=== PATIENT | male | born 1950 | race Caucasian/White ===

== ENCOUNTER 2017-10-04 19:45 | Emergency (ER) | payer MEDICARE, SELFPAY | END 2017-10-04 21:23 | disposition home or self-care (01) | PROVIDERS: Emergency Provider Nurse Practitioner; Family Provider Family Medicine; Visit Provider Nurse Practitioner | DX: R51 Headache (principal); R42 Dizziness and giddiness; Z79.899 Other long term (current) drug therapy; E11.9 Type 2 diabetes mellitus without complications; Z79.84 Long term (current) use of oral hypoglycemic drugs; Z79.82 Long term (current) use of aspirin; I10 Essential (primary) hypertension; E78.5 Hyperlipidemia, unspecified | CPT/HCPCS: G0463; 87804; 96372; 99202 ==

== ENCOUNTER 2017-11-26 16:54 | Emergency (ER) | payer MEDICARE, SELFPAY ==
--- NOTE | 2017-11-26 | CT_ITS ---
CT head/brain wo con HISTORY: Severe headache ITS.REASON: MIAGRAINE ORDERING PHYSICIAN: Magnolia Nunez PATIENT AGE: 67 years COMPARISON: None TECHNIQUE: Axial images obtained without contrast. Brain and bone windows reviewed. FINDINGS: No midline shift, mass effect, intracranial hemorrhage, hydrocephalus, or extra-axial fluid collection is evident. The calvarium has an unremarkable appearance. Small amount fluid in right mastoid air cells.. No sinus air-fluid levels.. IMPRESSION: No acute intracranial findings.
[2017-11-26 17:28] VITALS: BP 170/98; PULSE 71; RESP 20; TEMP 36.4; O2SAT 96; BMI 29.8
--- NOTE | 2017-11-26 18:11 | HMH.EDUTC ---
[facility] [place] Clinical Impression: Severe headache Disposition: Still a Patient Condition on Discharge: Good Time of Disposition: 18:30 Medical Decision Making - Medical Records Medical records reviewed: Yes: I reviewed the patient's medical records. MR Comment: 10/04/17 [facility] visit rvwd. Treated w/ benadryl, toradol, reglan and headache improved. Vital Signs: 11/26/17 17:28 11/26/17 18:40 Temperature 97.6 F 98.1 F Temperature Source Temporal Artery Scan Temporal Artery Scan Pulse Rate [Right Brachial] 71 66 Respiratory Rate 20 18 Blood Pressure [Right Arm] 170/98 158/87 Blood Pressure Mean [Right Arm] 122 110 Blood Pressure Source [Right Arm] Automatic Cuff Automatic Cuff Blood Pressure Position [Right Arm] Sitting Sitting 02 Sat by Pulse Oximetry 96 99 Oxygen Delivery Method Room Air Room Air Orders (Tests/Meds): ED MEDICATIONS Discontinued Medications Generic Name Dose Route Start Last Admin Trade Name Freq PRN Reason Stop Dose Admin Diphenhydramine HCl 12.5 mg 11/26/17 18:13 11/26/17 18:45 Benadryl 50mg/1ml Vial IV 11/26/17 18:14 12.5 mg ONCE ONE Administration Ketorolac Tromethamine 15 mg 11/26/17 18:13 11/26/17 18:45 Toradol 30mg/Ml Vial IV 11/26/17 18:14 15 mg ONCE ONE Administration Metoclopramide HCl 10 mg 11/26/17 18:13 11/26/17 18:44 Reglan 10mg/2ml Vial IVP 11/26/17 18:14 10 mg ONCE ONE Administration ORDERS Category Date Time Status CT head/brain wo con Routine Cat Scan 11/26/17 Taken - Physician Consults Physician Consulted: Dr. Kay, ER Time: 18:05 Reason -: Pt condition Comment/Response: Discussed HPI and PMHx that only includes one similiar headache Sep 2017. Agrees w/ transfer to ER for CT head. No bed at this time. UPPER EXTREMITY SURGEON aware. Will notify me once bed available. Aware pt request to be medicated now rather than wait for transfer to ER. VORB for 12.5mg benadryl IV, 10mg reglan IV and 15mg toradol IV as well as CT head w/o contrast while patient waiting for transfer. - Lefty Inquiry Pt receiving controlled substance: No - Reevaluation(s) Time: 18:00 Reevaluation #1: Discussed HPI and exam with patient and . Rvwd potential differential diagnoses. is adamant about CT scan. Aware that will require transfer to ER. pt and agreeable but pt prefers to be medicated soon because his pain is becoming worse. Aware I will discuss this with ER MD. [facility] [place] HPI - General Stated complaint: PHELPS,sick at Stomach Time Seen by Provider: 11/26/17 17:50 Mode of Arrival: Ambulatory Source of Information: Patient Limitations: No Limitations Description of Symptoms (Recalled from Triage Doc. by RN): migraine started lastnight HEENT Symptoms (Recalled from RN notes): No Resp Symptoms (Recalled from RN notes): No Skin Symptoms (Recalled from RN notes): No MS Symptoms (Recalled from RN notes): No Functional Status (Recalled from RN notes): n/a - History of Present Illness Provider Complaint: Here w/ c/o headache. Started day before yesterday but has progressively gotten worse despite ibuprofen. Last dose 600mg around 2-3pm today. PHELPS mild yesterday. Went into work last night, works 3rd with [employer]. Wasn't supposed to get off until 3 this afternoon but around 2pm, started vomiting and headache has gotten worse. Now photosensitive, remains nauseted despite 4mg zofran at 2-3pm, throbbing pain 9/10 behind left eye. Denies a hx of migraines. One other headache similiar Sep 2017. Was seen in [facility]. Improved with benadryl, toradol and reglan. This headache worse. Wonders if due to new glasses 1-2 months ago. Right prescription off. Returned to report it but was told not off to amount to anything . Mother and sister w/ stomach Ca. Due to lack of hx of migraines and this one worse then September, wanting CT to rule out potential causes other then migraine. - Related Data Home Medications Medication Instructions Recorded
--- NOTE | 2017-11-26 18:15 | ED_ITS ---
[facility] [place] Clinical Impression: Severe headache Disposition: Still a Patient Condition on Discharge: Good Time of Disposition: 18:30 Medical Decision Making - Medical Records Medical records reviewed: Yes: I reviewed the patient's medical records. MR Comment: 10/04/[address] [facility] visit rvwd. Treated w/ benadryl, toradol, reglan and headache improved. Vital Signs: 11/26/17 17:28 11/26/17 18:40 Temperature 97.6 F 98.1 F Temperature Source Temporal Artery Scan Temporal Artery Scan Pulse Rate [Right Brachial] 71 66 Respiratory Rate 20 18 Blood Pressure [Right Arm] 170/98 158/87 Blood Pressure Mean [Right Arm] 122 110 Blood Pressure Source [Right Arm] Automatic Cuff Automatic Cuff Blood Pressure Position [Right Arm] Sitting Sitting 02 Sat by Pulse Oximetry 96 99 Oxygen Delivery Method Room Air Room Air Orders (Tests/Meds): ED MEDICATIONS Discontinued Medications Generic Name Dose Route Start Last Admin Trade Name Freq PRN Reason Stop Dose Admin Diphenhydramine HCl 12.5 mg 11/26/17 18:13 11/26/17 18:45 Benadryl 50mg/1ml Vial IV 11/26/17 18:14 12.5 mg ONCE ONE Administration Ketorolac Tromethamine 15 mg 11/26/17 18:13 11/26/17 18:45 Toradol 30mg/Ml Vial IV 11/26/17 18:14 15 mg ONCE ONE Administration Metoclopramide HCl 10 mg 11/26/17 18:13 11/26/17 18:44 Reglan 10mg/2ml Vial IVP 11/26/17 18:14 10 mg ONCE ONE Administration ORDERS Category Date Time Status CT head/brain wo con Routine Cat Scan 11/26/17 Taken - Physician Consults Physician Consulted: Dr. Kay, ER Time: 18:05 Reason -: Pt condition Comment/Response: Discussed HPI and PMHx that only includes one similiar headache Sep 2017. Agrees w/ transfer to ER for CT head. No bed at this time. UPHOLSTERY TRIMMER aware. Will notify me once bed available. Aware pt request to be medicated now rather than wait for transfer to ER. VORB for 12.5mg benadryl IV, 10mg reglan IV and 15mg toradol IV as well as CT head w/o contrast while patient waiting for transfer. - Lefty Inquiry Pt receiving controlled substance: No - Reevaluation(s) Time: 18:00 Reevaluation #1: Discussed HPI and exam with patient and . Rvwd potential differential diagnoses. is adamant about CT scan. Aware that will require transfer to ER. pt and agreeable but pt prefers to be medicated soon because his pain is becoming worse. Aware I will discuss this with ER MD. [facility] [place] - General Stated complaint: PHELPS,sick at Stomach Time Seen by Provider: 11/26/17 17:50 Mode of Arrival: Ambulatory Source of Information: Patient Limitations: No Limitations Description of Symptoms (Recalled from Triage Doc. by RN): migraine started lastnight HEENT Symptoms (Recalled from RN notes): No Resp Symptoms (Recalled from RN notes): No Skin Symptoms (Recalled from RN notes): No MS Symptoms (Recalled from RN notes): No Functional Status (Recalled from RN notes): n/a - History of Present Illness Provider Complaint: Here w/ c/o headache. Started day before yesterday but has progressively gotten worse despite ibuprofen. Last dose 600mg around 2-3pm today. PHELPS mild yesterday. Went into work last night, works 3rd with [employer]. Wasn't supposed to get off until 3 this afternoon but around 2pm , started vomiting and headache has gotten worse. Now p
[2017-11-26 18:40] VITALS: BP 158/87; PULSE 66; RESP 18; TEMP 36.7; O2SAT 99; BMI 29.8
--- NOTE | 2017-11-26 18:40 | PC.NURSE ---
Pt remaining in UTC at this time r/t no available beds in ED.
--- NOTE | 2017-11-26 19:33 | HMH.EDGENADL ---
ED Disposition Clinical Impression: Headache Disposition: Home, Self-Care Condition on Discharge: Good Instructions: DI for Migraine Prescriptions: Prochlorperazine Maleate [Compazine 10mg tablet] 10 mg PO Q6HP PRN #10 tab PRN Reason: Headache Referrals: Arvind Kearns MD [Primary Care Provider] - - Critical Care Critical Care Time: No Attestation: On 11/26/17, the high probability of a clinically significant, sudden or life threatening deterioration of the following system(s) required my full and direct attention, intervention and personal management. The time I documented below is in addition to time spent performing reported procedures but includes the following listed in this critical care notation. Medical Decision Making - Medical Records MR Comment: [address] head read by radiology as no intracranial lesion or injury and no change from prior scan Vital Signs: 11/26/17 17:28 11/26/17 18:40 Temperature 97.6 F 98.1 F Temperature Source Temporal Artery Scan Temporal Artery Scan Pulse Rate [Right Brachial] 71 66 Respiratory Rate 20 18 Blood Pressure [Right Arm] 170/98 158/87 Blood Pressure Mean [Right Arm] 122 110 Blood Pressure Source [Right Arm] Automatic Cuff Automatic Cuff Blood Pressure Position [Right Arm] Sitting Sitting 02 Sat by Pulse Oximetry 96 99 Oxygen Delivery Method Room Air Room Air Orders (Tests/Meds): ED MEDICATIONS Discontinued Medications Generic Name Dose Route Start Last Admin Trade Name Freq PRN Reason Stop Dose Admin Diphenhydramine HCl 12.5 mg 11/26/17 18:13 11/26/17 18:45 Benadryl 50mg/1ml Vial IV 11/26/17 18:14 12.5 mg ONCE ONE Administration Ketorolac Tromethamine 15 mg 11/26/17 18:13 11/26/17 18:45 Toradol 30mg/Ml Vial IV 11/26/17 18:14 15 mg ONCE ONE Administration Metoclopramide HCl 10 mg 11/26/17 18:13 11/26/17 18:44 Reglan 10mg/2ml Vial IVP 11/26/17 18:14 10 mg ONCE ONE Administration ORDERS Category Date Time Status CT head/brain wo con Routine Cat Scan 11/26/17 Taken - Lefty Inquiry Pt receiving controlled substance: No General Adult HPI - General Chief complaint: Headache Stated complaint: PHELPS,sick at Stomach Time Seen by Provider: 11/26/17 17:50 Mode of Arrival: Ambulatory Source of Information: Patient Limitations: No Limitations Description of Symptoms (Recalled from ER Triage Doc. by RN): migraine started lastnight - History of Present Illness HPI narrative: Patient complains of headache started off mild in severity yesterday and got progressively worse and over his whole head more severe today has photophobia with it has history of migraine headaches but this headache is worse than usual and they desire to get a CAT scan of the head to make sure nothing was going on was seen over in fast track and sent over to the emergency room for further evaluation. Denies any fevers or neck stiffness. No falls no trauma. no Neurologic complaints - Related Data Home Medications Medication Instructions Recorded Confirmed Aspirin [Aspir 81] 81 mg PO DAILY 11/26/17 11/26/17 Bifidobacterium Infantis [Align] 4 mg PO DAILY 11/26/17 11/26/17 Hyoscyamine Sulfate 0.125 mg PO Q6HP PRN 11/26/17 11/26/17 Multivitamin [One Daily] 1 each PO DAILY 11/26/17 11/26/17 [place]-3 Fatty Acids [Fish Oil] 300 mg PO DAILY 11/26/17 11/26/17 Omeprazole [Omeprazole 40mg 40 mg PO DAILY 11/26/17 11/26/17 Capsule] Tamsulosin HCl [Flomax 0.4mg 0.4 mg PO DAILY 11/26/17 11/26/17 capsule] Previous Rx's Medication Instructions Recorded Prochlorperazine Maleate 10 mg PO Q6HP PRN #10 tab 11/26/17 [Compazine 10mg tablet] Allergies Allergy/AdvReac Type Severity Reaction Status Date / Time No Known Allergies Allergy Verified 11/26/17 17:28 [facility] History I have reviewed the patient's past medical history: Yes Medical History: Reports:: Diabetes Mellitus Type 2, Gastroesophageal Ref
--- NOTE | 2017-11-26 19:37 | ED_ITS ---
ED Disposition Clinical Impression: Headache Disposition: Home, Self-Care Condition on Discharge: Good Instructions: DI for Migraine Prescriptions: Prochlorperazine Maleate [Compazine 10mg tablet] 10 mg PO Q6HP PRN #10 tab PRN Reason: Headache Referrals: Arvind Kearns MD [Primary Care Provider] - - Critical Care Critical Care Time: No Attestation: On 11/26/17, the high probability of a clinically significant, sudden or life threatening deterioration of the following system(s) required my full and direct attention, intervention and personal management. The time I documented below is in addition to time spent performing reported procedures but includes the following listed in this critical care notation. Medical Decision Making - Medical Records MR Comment: [address] head read by radiology as no intracranial lesion or injury and no change from prior scan Vital Signs: 11/26/17 17:28 11/26/17 18:40 Temperature 97.6 F 98.1 F Temperature Source Temporal Artery Scan Temporal Artery Scan Pulse Rate [Right Brachial] 71 66 Respiratory Rate 20 18 Blood Pressure [Right Arm] 170/98 158/87 Blood Pressure Mean [Right Arm] 122 110 Blood Pressure Source [Right Arm] Automatic Cuff Automatic Cuff Blood Pressure Position [Right Arm] Sitting Sitting 02 Sat by Pulse Oximetry 96 99 Oxygen Delivery Method Room Air Room Air Orders (Tests/Meds): ED MEDICATIONS Discontinued Medications Generic Name Dose Route Start Last Admin Trade Name Freq PRN Reason Stop Dose Admin Diphenhydramine HCl 12.5 mg 11/26/17 18:13 11/26/17 18:45 Benadryl 50mg/1ml Vial IV 11/26/17 18:14 12.5 mg ONCE ONE Administration Ketorolac Tromethamine 15 mg 11/26/17 18:13 11/26/17 18:45 Toradol 30mg/Ml Vial IV 11/26/17 18:14 15 mg ONCE ONE Administration Metoclopramide HCl 10 mg 11/26/17 18:13 11/26/17 18:44 Reglan 10mg/2ml Vial IVP 11/26/17 18:14 10 mg ONCE ONE Administration ORDERS Category Date Time Status CT head/brain wo con Routine Cat Scan 11/26/17 Taken - Lefty Inquiry Pt receiving controlled substance: No General Adult HPI - General Chief complaint: Headache Stated complaint: PHELPS,sick at Stomach Time Seen by Provider: 11/26/17 17:50 Mode of Arrival: Ambulatory Source of Information: Patient Limitations: No Limitations Description of Symptoms (Recalled from ER Triage Doc. by RN): migraine started lastnight - History of Present Illness HPI narrative: Patient complains of headache started off mild in severity yesterday and got progressively worse and over his whole head more severe today has photophobia with it has history of migraine headaches but this headache is worse than usual and they desire to get a CAT scan of the head to make sure nothing was going on was seen over in fast track and sent over to the emergency room for further evaluation. Denies any fevers or neck stiffness. No falls no trauma. no Neurologic complaints - Related Data Home Medications Medication Instructions Recorded Confirmed Aspirin [Aspir 81] 81 mg PO DAILY 11/26/17 11/26/17 Bifidobacterium Infantis [Align] 4 mg PO DAILY 11/26/17 11/26/17 Hyoscyamine Sulfate 0.125 mg PO Q6HP PRN 11/26/17 11/26/17 Multivitamin
[2017-11-26 19:49] VITALS: BP 168/96; PULSE 82; RESP 16; TEMP 36.8; O2SAT 98
== END 2017-11-26 19:51 | disposition home or self-care (01) ==
LOC: UTC 18:39 → ER 19:23
PROVIDERS: Emergency Provider Nurse Practitioner Family; Family Provider Family Medicine; PCP Family Medicine
DX: R51 Headache (principal); R10.9 Unspecified abdominal pain; Z79.82 Long term (current) use of aspirin; K21.9 Gastro-esophageal reflux disease without esophagitis; E11.9 Type 2 diabetes mellitus without complications; I10 Essential (primary) hypertension; Z90.49 Acquired absence of other specified parts of digestive tract
CPT/HCPCS: 70450; 96374; 96375; 99283

== ENCOUNTER → 2019-02-17 08:58 | Outpatient (CLI) | payer MEDICARE, SELFPAY ==
--- NOTE | 2019-02-17 09:08 | US_ITS ---
US chest CLINICAL INDICATION: ITS.REASON: AMI AXILLARY NODULES ORDERING PHYSICIAN: Juli Randall APRN PATIENT AGE: 68 years Comparison: None FINDINGS: Ultrasound performed of both axilla. On the right nonspecific axillary lymph nodes are present measuring up to 2.7 cm with central fatty wilda. On the left there are small nodes present measuring up to 2.9 cm with central fatty wilda. No cyst or other significant anomalies evident IMPRESSION: Small bilateral axillary are present
== END ==
PROVIDERS: PCP Family Medicine; Visit Provider Nurse Practitioner
DX: R22.2 Localized swelling, mass and lump, trunk (principal)
CPT/HCPCS: 76604

== ENCOUNTER 2019-03-07 08:54 | Day surgery (SDC) | payer MEDICARE, SELFPAY ==
[2019-03-04 14:01] VITALS: BMI 29.4
[2019-03-07] VITALS (8 sets, daily range): BP systolic 85–145; BP diastolic 57–94; PULSE 79–88; RESP 16–20; TEMP 36.4–36.7; O2SAT 94–99
[2019-03-07 09:32] LABS: POC Glucose,Bedside 131 (70-110)
--- NOTE | 2019-03-07 10:17 | P.PCN_ITS ---
[facility] Procedure Note Procedure Note:: Colonoscopy Procedure Report: Colonoscopy with cold snare polypectomy Endoscopist: Aristides Ochoa II, MD Referring physician: Taniya COLEMAN Date of Procedure: March 07, 2019 Equipment: Olympus 180 variable stiffness pediatric colonoscope Sedation: MAC sedation Indication: Mr. Holt is a 68-year-old gentleman who is here for diagnostic colonoscopy. He has had some left lower quadrant abdominal pain and discomfort and intermittent diarrhea. The patient did have a colonoscopy in April 2016 and had some acute ileitis but no microscopic colitis. He also had left-sided diverticulosis. The patient reports no rectal bleeding, weight loss or family history of colon cancer. His mother and sister had stomach/gastric cancer. Procedure: Prior to the procedure, a history and physical exam was performed, and patient's medications and allergies were reviewed. The risks, benefits and alternatives of the sedation and procedure were discussed with the patient. All questions were answered and informed consent was obtained. The patient was brought to the procedure room. Patient identification and proposed procedure were verified by the physician and the nurse. The patient was placed in a left lateral decubitus position and the scope was passed under direct vision. Throughout the proc edure, the patient's blood pressure, pulse, and oxygen saturations were monitored continuously. The colonoscopy was accomplished without difficulty. The patient tolerated the procedure well. Findings: On digital rectal examination there was normal rectal tone. There were no external hemorrhoids. The prostate was 2+, smooth, soft, symmetric without nodules. The colonoscope was introduced through the anal canal to the rectum and advanced to the cecum. The ileocecal valve and appendiceal orifice were identified. The scope was advanced a short distance into the ileum which appeared grossly normal. The scope was then withdrawn into the colon. There were 2 polyps in the cecum that were 3 and 6 mm. There were 2 polyps in the transverse colon that were 4 and 5 mm. All 4 of these polyps were removed via cold snare polypectomy. There were extensive scattered diverticuli throughout the colon but more predominantly in the descending and sigmoid colon (LEFT colon). The rectum itself was normal. Upon retroflexion within the rectum there were grade 1 internal hemorrhoids. The preparation was excellent throughout with [place] Preparation Score of 9. The cecal time was 13 minutes. Impression: 1. Colonic polyps x4 2. Pandiverticulosis 3. Grade 1 internal hemorrhoids Plan: I will follow up the polyp pathology and recommend repeat colonoscopy again in 3 years based upon the polyp histology. I would encourage dietary measures, bulk fiber supplementation, probiotic and IBgard on a long-term daily maintenance basis. I would also consider Viberzi. I will discuss the findings with patient and family.
== END 2019-03-07 11:10 | disposition home or self-care (01) ==
LOC: OUTP 08:55
PROVIDERS: PCP Family Medicine; Visit Provider Internal Medicine Gastroenterology
PROC: 0DJD8ZZ Inspection of Lower Intestinal Tract, Via Natural or Artificial Opening Endoscopic (ICD-10-PCS; CPT 45378; principal; 2019-03-07 10:00)
DX: K63.5 Polyp of colon (principal); K57.30 Diverticulosis of large intestine without perforation or abscess without bleeding; K64.0 First degree hemorrhoids; Z87.19 Personal history of other diseases of the digestive system; Z85.028 Personal history of other malignant neoplasm of stomach; E11.9 Type 2 diabetes mellitus without complications
CPT/HCPCS: 45385; 82962; 88305

== ENCOUNTER → 2019-04-22 08:17 | Outpatient (CLI) | payer MEDICARE, SELFPAY ==
--- NOTE | 2019-04-22 08:19 | CT_ITS ---
CT chest wo con HISTORY: ITS.REASON: ENLARGED LYMPH NODE IN ARMPIT, NIGHT SWEATS ORDERING PHYSICIAN: Arvind Kearns MD PATIENT AGE: 68 years COMPARISON: None Technique: Axial images were obtained. Sagittal, and coronal reformatted images are also generated and reviewed. All CT scans at the facility use one or more dose reduction, viz: automated exposure control, ma/kV adjustment per patient size (including targeted exams where dose is matched to indication, i.e. head), or iterative reconstruction technique. FINDINGS: No mediastinal or hilar adenopathy. There are a few small hilar lymph nodes nonspecific. Coronary artery calcifications are present. There are scattered small axillary lymph nodes however, no enlarged lymph nodes are evident. No effusions or infiltrates. No suspicious pulmonary nodules. There is a 3 mm nodule in the left upper lobe anteriorly is hyperdense and a calcified granuloma in the left lower lobe. Upper abdominal images show a 10 mm isodense nodule in the left hepatic lobe may represent a cyst. Nonobstructing 2 mm stone in the upper pole the left kidney. There are mild degenerative changes in the thoracic spine. IMPRESSION: 1. No acute finding. 2. There are only small lymph nodes noted in the axilla and in the mediastinum and wilda. No dominant adenopathy is evident. 3. Coronary artery calcification
== END ==
PROVIDERS: PCP Family Medicine; Visit Provider Family Medicine
DX: R59.0 Localized enlarged lymph nodes (principal); R61 Generalized hyperhidrosis
CPT/HCPCS: 71250

== ENCOUNTER 2019-07-03 08:30 | Outpatient (RCR) | payer MEDICARE, SELFPAY ==
--- NOTE | 2019-06-25 11:10 | HMH.PTOPEV ---
PT Outpatient Evaluation Rehab PT Outpatient Evaluation Start: 06/25/19 10:35 Freq: Status: Active Protocol: Document 06/25/19 10:44 GI (Rec: 06/25/19 11:10 GI [id number]) Electronically Signed By Scott Gbison, PT 06/25/19 10:44 Outpatient Therapy Subjective History Subjective History 68 year old male pt. is referred to PT for L sided neck pn. Pt. reports pn. has been going on for about 2 months now. Pt. states he has a history of bone spurs on the right side of his neck as well as arthritis. Pt. reports that he has a numbness and sharp pn. on the L side of his neck but it is isolated to this spot. States that Alieve and certain positions make it feel better. Extending, rotating, and sleeping on his L side bother him the most. Chief Complaint Pain,Paresthesia Symptom Type Sharp,Numbness,Tingling Symptoms Relieved By Rest/Positioning,OTC Meds Symptoms Aggravated By Physical Activity,Twisting, Lifting Prior Functional Limitations None Current Functional Limitations Reaching,Lifting,Sleeping, Recreation Activity Symptom Description Constant but Variable Level of pain today (0-10) 4 Pain scale - at its best (0-10) 3 Pain scale - at its worst (0-10) 6 Cervical Eval Flexibility Deficits Upper Trapezius Muscle Length (R) Mild Tightness,(L) Mild Tightness Sternocleidomastoid Muscle Length (R) Mild Tightness,(L) Mild Tightness AROM Cervical Spine Extension Active Range of 25 Motion (degrees) Cervical Spine Flexion Active Range of 60 Motion (degrees) Cervical Spine Right Lateral Flexion 30 Active Range of Motion (degrees) Cervical Spine Left Lateral Flexion 30 Active Range of Motion (degrees) Cervical Spine Right Rotation Active 40 Range of Motion (degrees) Cervical Spine Left Rotation Active 40 Range of Motion (degrees) MMT Bilateral Deltoid (C5) 5 Normal Biceps Brachii Strength Grade 5 Normal Wrist Extension Strength Grade 5 Normal Triceps Brachii Strength Grade 5 Normal Wrist Flexion Strength Grade 5 Normal Extensor Pollicis Longus Strength Grade 5 Normal Finger Abduction Strength Grade 5 Normal DTR Rt Biceps 1+
== END 2019-07-03 08:35 | disposition home or self-care (01) ==
LOC: PT 08:30
PROVIDERS: PCP Family Medicine; Visit Provider Family Medicine
DX: M54.2 Cervicalgia (principal)
CPT/HCPCS: 97012; 97014; 97110; 97163; G0283

== ENCOUNTER → 2019-10-27 10:23 | Outpatient (CLI) | payer MEDICARE, SELFPAY ==
--- NOTE | 2019-10-27 10:40 | CT_ITS ---
PROCEDURE: CT CHEST W CON CLINCAL INDICATION: AXILLARY LYMPHADENOPATHY Bilateral axillary adenopathy COMPARISON: CHESTWO CT chest wo con from 04/22/2019 TECHNIQUE: IV Contrast: 75ml Optiray 350 Axial images obtained with sagittal and coronal reformats. All CT scans at the facility use one or more dose reduction, viz: automated exposure control, ma/kV adjustment per patient size (including targeted exams where dose is matched to indication, i.e. head), or iterative reconstruction technique. FINDINGS: No mediastinal or hilar mass. There are few small mediastinal and hilar lymph nodes which do not appear significantly changed. Coronary artery calcifications are present. Normal heart size without evidence of pericardial effusion. There are scattered small bilateral axillary lymph nodes. No enlarged nodes are evident.. No effusions or infiltrates. There is a calcified granuloma in the left upper lobe. Calcified granuloma is also present in the left lower lobe. No suspicious pulmonary nodules. Upper abdominal images show mild fatty liver. Hypodense nodules present in the left hepatic lobe at 8 mm and in the anterior segment of the right hepatic lobe at 5 mm. These are nonspecific too small to categorize. 3 mm nonobstructing stone is present in the upper pole of the left kidney. IMPRESSION: Overall no change with no acute finding. No change small axillary mediastinal nodes. Possible small cysts in the liver Dictated by: Venkat Eduardo MD 10/28/2019 11:10 Electronically signed by Venkat Eduardo MD in [place] 10/28/2019 11:10
[2019-10-27 10:45] LABS: Blood Urea Nitrogen 15 mg/dL (7-18); Creatinine,Serum 0.77 mg/dL (0.70-1.30); Estimated Glomerular Filt Rate 101 ml/min (>60); GFR (African American) 122 ML/MIN (>60)
== END ==
PROVIDERS: PCP Family Medicine; Visit Provider Family Medicine
DX: R59.0 Localized enlarged lymph nodes (principal)
CPT/HCPCS: 36415; 71260; 82565; 84520; Q9967

== ENCOUNTER → 2021-05-27 12:58 | Outpatient (CLI) | payer MEDICARE, SELFPAY ==
--- NOTE | 2021-05-27 13:02 | XR_ITS ---
PROCEDURE: XR CERVICAL SPINE 5V CLINICAL INDICATION: CERVICAL SPONYLOSIS COMPARISON: No exams were available for comparison FINDINGS: Normal alignment. No fracture or dislocation evident. Multilevel degenerative disc disease from C3 to C7. Foraminal narrowing is present on the right at C3-C4 C4-C5 and C5-C6 and on the left at C3-C4 C4-C5 and C5-C6. no lytic or blastic change. No evidence of cervical rib. Facet hypertrophic changes are present from C3 to C7. Other findings:None. IMPRESSION: Cervical spondylosis with degenerative disc disease and foraminal narrowing Dictated by: Venkat Eduardo MD 05/27/2021 14:34 Venkat Eduardo MD in [place] 05/27/2021 14:34
== END ==
PROVIDERS: PCP Family Medicine; Visit Provider Family Medicine
DX: M47.812 Spondylosis without myelopathy or radiculopathy, cervical region (principal)
CPT/HCPCS: 72050

== ENCOUNTER → 2021-07-20 06:48 | Outpatient (CLI) | payer MEDICARE, SELFPAY ==
--- NOTE | 2021-07-20 | CA_ITS ---
APPROVED REPORT Exam: Exercise Treadmill Technologist: Antonella Armendariz Ht: 5 ft 6 in Wt: 196 lbs BSA: 1.98 m2 HR: 85 bpm BP: 137/83 mmHg Indications: Chest pain Stress Test Details Test: Jean Marie HR Resting HR: 93 bpm Max Heart Rate (APMHR): 152.697205 bpm Max HR Achieved: 141 bpm Target HR (85% APMHR): 129.131933 bpm % of APMHR: 92.76 Recovery HR: 105 bpm BP Resting BP: 137.0/83.0 mmHg Max BP: 192.0/76.0 mmHg Recovery BP: 135.0/83.0 mmHg ECG Resting ECG: Normal sinus rhythm Clinical Exercise duration: 07:01 min Highest Stage Achieved: Exercise capacity: 10.1 METs Stress ECG Conclusion Stopped at 7:00 on Jean Marie Protocol. Test stopped due to shortness of air, fatigue. Symptoms: No chest pain, slight dizziness. Arrhythmias/Ectopy: None ST-T Changes: Within normal ST response to exercise. Conclusion: Normal GXT. Myoview images reported separately. Electronically signed by : Min Foote MD 07/21/2021 09:49:14
--- NOTE | 2021-07-20 06:55 | NM_ITS ---
APPROVED REPORT Exam: Nuclear Stress Test Indication: HTN, D.M., FM HX, C.P., SOB, FATIGUE, DIZZINESS, ATYPICAL ANGINA Patient Location: Outpatient Stress Tech: April Mathew [place] Tech:Nita Umana, ARRT RT (R)(N)(M) Ht: 5 ft 6 in Wt: 183 lbs HR: 85 bpm BP: 137/83 mmHg BSA: 1.93 m2 BMI: 29.5 History: HTN, D.M., FM HX, C.P., SOB, FATIGUE, DIZZINESS, ATYPICAL ANGINA Procedure: Patient exercised on Jean Marie protocol 7:00 minutes and sec, resting heart rate 85 bpm, resting blood pressure 137/83 mmHg, with exercise maximum heart rate achived was 141 bpm which is 93 % of the maximum predicted heart rate and blood pressure was 192/76 mmHg. Test was stopped due to DIZZINESS. Patient denied any complaint of chest pain. Patient has good exercise capacity, achieved 10.1 METs of workload on treadmill, the blood pressure response to exercise was Adequate. Electrocardiogram Resting electrocardiogram showed sinus rhythm, with exercise there is less than 1.[address] segment depression noted from the baseline EKG. The EKG portion of the exercise Myoview is negative for ischemia. Cardiac Stress and Resting SPECT Images: Cardiac Stress and Resting SPECT images were obtained using technetium 99m Myoview 32.7 mCi stress and 10.79 mCi at rest. Gated SPECT for analysis of segmental wall motion and calculation of the ejection fraction also done. Prone images were also obtained. Cardiac stress and resting SPECT images show uniform myocardial activity without segmental perfusion abnormality, computer derived ejection fraction is 50% with no regional wall motion abnormality, right ventricle is normal size and contractility. Conclusion: 1. The EKG portion of the exercise Myoview is negative for ischemia, patient has good exercise capacity achieved 10.1 METs of workload on treadmill, the blood pressure response to exercise was adequate, there was no exercise-induced chest discomfort. 2. No scintigraphic evidence of reversible ischemia seen, computer derived ejection fraction 50% with no regional wall motion abnormality, right ventricle is normal size and contractility. 3. Normal exercise Myoview study. Electronically signed by : Min Foote MD 07/21/2021 09:53:06
--- NOTE | 2021-07-20 08:18 | CA_ITS ---
APPROVED REPORT EXAM: Comprehensive 2D, Doppler, and color-flow Echocardiogram Gunite Mixer: Aarti Khan CRT Ht: 5 ft 6 in Wt: 185lbs BSA: 1.93 BP: 158/96 mmHg Indications: Chest Pain, Shortness of Breath, Dizziness and Vertigo, CAD 2D Dimensions LVOT 1.97 cm (M/F) 1.5-2.5 LA Volume 19.80 mL LA Volume Index 10.30 mL/m2 (M/F) 16-34 M-Mode Dimensions RVDd 2.39 cm (0.9-2.6) LA Diam 3.50 cm (1.9-4.0) LVDd 5.42 cm (3.5-5.7) Ao Diam 4.28 cm (2.0-3.7) LVDs 3.39 cm (3.5-5.7) IVSd 0.93 cm (0.6-1.1) PWd 0.82 cm (0.6-1.1) EF (Teich) 66.90% FS 37.50% EDV (Teich) 142.50 mL TAPSE 2.60 (<1.7) ESV (Teich) 47.10 mL LV Diastology E Decel Time 237.00 (160-240 msec) E/A Ratio 0.75 MED E' 4.10 (< 7 cm/sec) MED A' 7.00 cm/s E'/MED E' Ratio 15.88 (>14) LAT E' 10.50 (<10 cm/sec) LAT A' 8.00 cm/s E/LAT E' Ratio 6.20 (>14) Aortic Valve AO Peak GR. 5.30 mmHg Mitral Valve MV E Max Carlos. 65.00 (40-130 cm/s) MV A Velocity 86.00 (40-130 cm/s) E/A Ratio 0.75 MV Decel. Time 237.00 (160-240 ms) MV PHT 69.00 ms Pulmonary Valve PV Peak Velocity 119.00 (50-150 cm/s) Tricuspid Valve TR P. Velocity 174.00 cm/s RAP Estimate 10.00 mmHg RVSP 22.00 mmHg Left Ventricle Left atrium is qualitatively mildly enlarged, left ventricle is normal size, mild qualitative concentric left ventricular hypertrophy, visually estimated ejection fraction 55% with no regional wall motion abnormality. Grade 1 diastolic dysfunction seen without tissue Doppler evidence of raise left atrial pressure. Right Ventricle Right atrium and right ventricle are normal size and contractility. Aortic Valve Aortic valve is grossly normal, there is no aortic stenosis or aortic insufficiency. Mitral Valve Mitral valve grossly normal, there is trace mitral regurgitation. Tricuspid Valve Tricuspid grossly normal, there is trace tricuspid regurgitation, tricuspid regurgitation jet velocity is inadequate for calculation of the right ventricular systolic pressure. Pulmonic Valve Pulmonic valve is poorly visualized. Great Vessels Aortic root is normal size. Inferior vena cava is normal size with normal inspiratory collapse. Pericardium No significant pericardial effusion noted. Conclusion 1. Qualitatively mildly enlarged left atrium, normal left ventricular size, mild qualitative concentric left ventricular hypertrophy, visually estimated ejection fraction 55% with no regional wall motion abnormality, grade 1 diastolic dysfunction seen without tissue Doppler evidence of raise left atrial pressure. 2. Trace mitral and tricuspid regurgitation. 3. No significant pericardial effusion noted. 4. Inferior vena cava is normal size with normal inspiratory collapse. Electronically signed by : Min Foote MD 07/21/2021 11:24:38
== END ==
PROVIDERS: PCP Family Medicine; Visit Provider Internal Medicine Cardiovascular Disease
DX: I20.8 Other forms of angina pectoris (principal); R06.00 Dyspnea, unspecified; R42 Dizziness and giddiness
CPT/HCPCS: 78452; 93017; 93306; A9502

== ENCOUNTER → 2021-07-22 08:07 | Outpatient (CLI) | payer MEDICARE, SELFPAY ==
[2021-07-22 08:20] LABS: Basophils % 0.6 % (0.1-2.0); Eosinophils # 0.3 K/mm3 (0.0-0.4); Eosinophils % 3.9 % (0.1-12.0); Hematocrit 43.5 % (42.0-52.0); Hemoglobin 14.7 g/dL (14.1-18.0); Lymphocytes # 2.2 K/mm3 (0.7-4.5); Lymphocytes % 30.1 % (10-50); Mean Corpuscular HGB Conc 33.8 g/dL (31.8-35.4); Mean Corpuscular Hemoglobin 32.1 pg (27.0-31.2); Mean Platelet Volume 9.8 fl (7.4-10.4); Monocytes # 0.5 K/mm3 (0.1-1.0); Monocytes % 6.3 % (1.7-9.3); Neutrophils # 4.2 K/mm3 (1.8-7.8); Platelet Count 216 K/mm3 (142-424); Red Blood Count 4.58 M/mm3 (4.60-6.20); Red Cell Distribution Width 13.9 % (11.5-17.5); White Blood Count 7.2 K/mm3 (4.8-10.8)
[2021-07-22 08:28] LABS: Chloride 105 mmol/L (98-107)
[2021-07-22 08:29] LABS: Sodium 138 mmol/L (136-145)
[2021-07-22 08:31] LABS: Bilirubin,Unconjugated 0.4 mg/dL (0.0-1.1); Blood Urea Nitrogen 17 mg/dl (9-20); Estimated Glomerular Filt Rate 96 ml/min (>60); GFR (African American) 116 ML/MIN (>60)
[2021-07-22 08:32] LABS: Alanine Aminotransferase 21 U/L (12-78); Aspartate Amino Transferase 25 U/L (17-59); Calcium 8.9 mg/dl (8.4-10.2); Carbon Dioxide 25 mmol/L (22.0-30.0); Glucose 130 mg/dl (74-100); HDL Cholesterol 50 mg/dl (40-60)
[2021-07-22 08:43] LABS: Direct LDL Cholesterol 41.54 mg/dL (100-129)
[2021-07-22 09:03] LABS: Free T4 (Free Thyroxine) 1.14 ng/dl (0.78-2.19)
[2021-07-22 09:31] LABS: Albumin Level 4.1 g/dl (3.5-5.0); Alkaline Phosphatase 64 U/L (38-126); Bilirubin,Direct 0.1 mg/dl (0.0-0.4); Bilirubin,Indirect 0.4 mg/dL (0.0-0.9); Bilirubin,Total 0.5 mg/dl (0.2-1.3); Chol/HDL Ratio 2.1 (1-3.5); Cholesterol 104 mg/dl (140-200); Total Protein,Serum 6.6 g/dl (6.3-8.2); Triglycerides 49 mg/dl (30-150); VLDL Cholesterol 10 mg/dL (0-40)
== END ==
PROVIDERS: Visit Provider Internal Medicine Cardiovascular Disease
DX: R06.00 Dyspnea, unspecified; R42 Dizziness and giddiness; I20.8 Other forms of angina pectoris
CPT/HCPCS: 36415; 80048; 80061; 80076; 84439; 84443; 85025

== ENCOUNTER → 2021-09-01 15:42 | Outpatient (CLI) | payer MEDICARE, SELFPAY | PROVIDERS: PCP Family Medicine; Visit Provider Internal Medicine Cardiovascular Disease | DX: G47.33 Obstructive sleep apnea (adult) (pediatric) (principal); R40.0 Somnolence; R06.83 Snoring | CPT/HCPCS: G0399 ==

== ENCOUNTER 2021-10-01 14:48 | Emergency (ER) | payer MEDICARE, SELFPAY ==
[2021-10-01 16:22] VITALS: BP 150/88; PULSE 75; RESP 20; TEMP 36.6; O2SAT 96; BMI 29.8
--- NOTE | 2021-10-01 16:40 | HMH.EDUTC ---
[facility] [place] Clinical Impression: Sinusitis Qualifiers: Sinusitis location: unspecified location Chronicity: acute Recurrence: non-recurrent Qualified Code(s): J01.90 - Acute sinusitis, unspecified Disposition: Home, Self-Care Condition on Discharge: Good Instructions: DI for Sinusitis Additional Instructions: Drink plenty of fluids. Take tylenol or ibuprofen for pain or fever. Take the medications as directed. Follow up with your regular doctor. GO TO THE ER FOR ANY WORSENING SYMPTOMS Prescriptions: Promethazine/Dextromethorphan [Promethazine-Dm Syrup] 5 ml PO Q6HP PRN #240 ml PRN Reason: Cough Transmission Status: Received by [id number] methylPREDNISolone [Medrol] 4 mg PO DIRECTED 6 Days #21 packet Transmission Status: Received by [id number] Azithromycin [Z-Antony 250mg Tab*] 250 mg PO UD DOSE PK #6 tab Transmission Status: Received by [id number] Referrals: Arvind Kearns MD [Primary Care Provider] - Time of Disposition: 17:02 Medical Decision Making - Medical Records Medical records reviewed: No: I reviewed the patient's medical records. - Lefty Inquiry Pt receiving controlled substance: No Vital Signs: 10/01/21 16:22 10/01/21 17:14 Temperature 97.8 F 97.8 F Temperature Source Oral Pulse Rate 75 Pulse Rate [Left] 75 Respiratory Rate 20 20 Blood Pressure 150/88 H Blood Pressure [Right Arm] 150/88 H Blood Pressure Mean [Right Arm] 108 02 Sat by Pulse Oximetry 96 - Lab Data Lab results reviewed: Yes: I reviewed the patient's lab results. [facility] [place] - General Stated complaint: cough,congestion Time Seen by Provider: 10/01/21 16:40 Mode of Arrival: Ambulatory Source of Information: Patient Limitations: No Limitations Description of Symptoms (Recalled from Triage Doc. by RN): pt c/o a productive cough x2 weeks. pt works outside. HEENT Symptoms (Recalled from RN notes): No Resp Symptoms (Recalled from RN notes): Yes (productive cough) Skin Symptoms (Recalled from RN notes): No MS Symptoms (Recalled from RN notes): No Functional Status (Recalled from RN notes): wnl - History of Present Illness Provider Complaint: He states that he has had a cough, sinus congestion for the past 2 weeks. - Related Data Home Medications Medication Instructions Recorded Confirmed Aspirin [Aspir 81] 81 mg PO DAILY 11/26/17 09/21/21 Multivitamin [One Daily] 1 each PO DAILY 11/26/17 09/21/21 Omeprazole [Omeprazole 40mg 40 mg PO DAILY 11/26/17 09/21/21 Capsule] Tamsulosin HCl [Flomax 0.4mg 0.4 mg PO DAILY 11/26/17 09/21/21 capsule] levothyroxine 50 mcg tablet 50 mcg PO DAILY 05/06/19 09/21/21 glipizide 5 mg tablet 5 mg PO DAILY 12/15/20 09/21/21 omega-3 fatty acids 300 mg capsule 1,200 mg PO DAILY cap 12/15/20 09/21/21 metformin 500 mg tablet 1,000 mg PO DAILY tab 07/07/21 09/21/21 lisinopril 20 mg tablet 20 mg PO DAILY tab 09/21/21 09/21/21 Previous Rx's Medication Instructions Recorded empagliflozin 10 mg tablet 10 mg PO DAILY #30 tab 07/07/21 rosuvastatin 20 mg tablet 20 mg PO DAILY #30 tab 07/07/21 bisoprolol fumarate 5 mg tablet 5 mg PO DAILY #30 tab 07/22/21 Azithromycin [Z-Antony 250mg Tab*] 250 mg PO UD DOSE PK #6 tab 10/01/21 Promethazine/Dextromethorphan 5 ml PO Q6HP PRN #240 ml 10/01/21 [Promethazine-Dm Syrup] methylPREDNISolone [Medrol] 4 mg PO DIRECTED 6 Days #21 10/01/21 packet Allergies Allergy/AdvReac Type Severity Reaction Status Date / Time No Known Allergies Allergy Verified 09/21/21 15:57 - Worker's Comp Is this a Worker's Comp case?: No [facility] History - Hepatitis A Screen Drug use history?: No High risk sexual behaviors?: No History of sexually transmitted infection?: No Currently employed?: No Childcare worker?: No Do you have indoor plumbing?: Yes Do you have electricity?: Yes Attestation statement:: This patient has been screened for Hepatitis A risk factors. I have reviewe
[2021-10-01 17:14] VITALS: BP 150/88; PULSE 75; RESP 20; TEMP 36.6
== END 2021-10-01 17:15 | disposition home or self-care (01) ==
PROVIDERS: Emergency Provider Nurse Practitioner Family; PCP Family Medicine
DX: J01.90 Acute sinusitis, unspecified (principal); E11.9 Type 2 diabetes mellitus without complications; K21.9 Gastro-esophageal reflux disease without esophagitis; E78.5 Hyperlipidemia, unspecified; I10 Essential (primary) hypertension
CPT/HCPCS: G0463; 99202

== ENCOUNTER → 2022-05-26 10:20 | Outpatient (CLI) | payer MEDICARE, SELFPAY ==
[2022-05-26 11:24] LABS: Basophils % 0.6 % (0.1-2.0); Eosinophils # 0.2 K/mm3 (0.0-0.4); Eosinophils % 3.2 % (0.1-12.0); Hematocrit 44.3 % (42.0-52.0); Hemoglobin 14.2 g/dL (14.1-18.0); Lymphocytes % 28.7 % (10-50); Mean Corpuscular Hemoglobin 30.6 pg (27.0-31.2); Mean Corpuscular Volume 95.8 fl (80-94); Mean Platelet Volume 9.6 fl (7.4-10.4); Monocytes # 0.5 K/mm3 (0.1-1.0); Neutrophils # 4.2 K/mm3 (1.8-7.8); Neutrophils % 60.6 % (37.0-80.0); Platelet Count 195 K/mm3 (142-424); Red Blood Count 4.63 M/mm3 (4.60-6.20); Red Cell Distribution Width 13.3 % (11.5-17.5); White Blood Count 6.8 K/mm3 (4.8-10.8)
[2022-05-26 11:40] LABS: Alanine Aminotransferase 23 U/L (12-78); Alkaline Phosphatase 75 U/L (38-126); Anion Gap 9.6 mEq/L (5-15); Aspartate Amino Transferase 24 U/L (17-59); Bilirubin,Direct 0.1 mg/dl (0.0-0.4); Bilirubin,Indirect 0.4 mg/dL (0.0-0.9); Bilirubin,Total 0.5 mg/dl (0.2-1.3); Bilirubin,Unconjugated 0.4 mg/dL (0.0-1.1); Blood Urea Nitrogen 15 mg/dl (9-20); Carbon Dioxide 24 mmol/L (22.0-30.0); Chloride 110 mmol/L (98-107); Chol/HDL Ratio 2.4 (1-3.5); Cholesterol 104 mg/dl (140-200); Estimated Glomerular Filt Rate 112 ml/min (>60); GFR (African American) 135 ML/MIN (>60); Glucose 99 mg/dl (74-100); HDL Cholesterol 43 mg/dl (40-60); Magnesium 1.6 mg/dl (1.6-2.3); Potassium 4.6 mmoL/L (3.5-5.1); Sodium 139 mmol/L (136-145); Total Protein,Serum 6.2 g/dl (6.3-8.2); Triglycerides 52 mg/dl (30-150); VLDL Cholesterol 10 mg/dL (0-40)
[2022-05-26 11:57] LABS: Free T4 (Free Thyroxine) 1.08 ng/dl (0.78-2.19)
[2022-05-26 12:10] LABS: Thyroid Stimulating Hormone 2.25 uIU/mL (0.465-4.68)
[2022-05-27 10:23] LABS: Direct LDL Cholesterol 48 mg/dL (100-129)
== END ==
PROVIDERS: PCP Nurse Practitioner Family; Visit Provider Internal Medicine Cardiovascular Disease
DX: E78.5 Hyperlipidemia, unspecified (principal); I25.118 Atherosclerotic heart disease of native coronary artery with other forms of angina pectoris; Q24.5 Malformation of coronary vessels; R06.00 Dyspnea, unspecified; R42 Dizziness and giddiness
CPT/HCPCS: 36415; 80048; 80061; 80076; 83735; 84439; 84443; 85025

== ENCOUNTER 2022-08-26 08:29 | Emergency (ER) | payer MEDICARE, SELFPAY ==
[2022-08-26 09:10] VITALS: BP 141/90; PULSE 86; RESP 17; TEMP 36.8; O2SAT 100; BMI 27.7
--- NOTE | 2022-08-26 09:35 | EXP.UTC ---
Discharge Plan Disposition Patient Disposition: Home, Self-Care Condition: Good Prescriptions Prescriptions: New benzonatate 100 mg capsule 100 mg PO TID PRN (Reason: cough) Qty: 15 0RF azithromycin [Zithromax Z-Antony] 250 mg tablet See Rx Instructions .ROUTE .COMPLEX 5 Days Qty: 6 0RF Rx Instructions: For 250 mg dose pack: take 500 mg today (day 1), then 250 mg for 4 days (days 2-5) No Action Sleep Aid (doxylamine) 25 mg tablet 25 mg PO HS PRN glipizide 5 mg tablet 5 mg PO DAILY Jardiance 10 mg tablet 10 mg PO DAILY Qty: 30 3RF lisinopril 5 mg tablet 5 mg PO DAILY Qty: 30 3RF levothyroxine 50 mcg tablet See Rx Instructions .ROUTE .COMPLEX Qty: 30 0RF Dose Instruction: TAKE ONE TABLET BY MOUTH EVERY MORNING ON AN EMPTY STOMACH Rx Instructions: TAKE ONE TABLET BY MOUTH EVERY MORNING ON AN EMPTY STOMACH bisoprolol fumarate 5 mg tablet See Rx Instructions .ROUTE .COMPLEX Qty: 30 5RF Dose Instruction: TAKE ONE TABLET BY MOUTH ONCE A DAY Rx Instructions: TAKE ONE TABLET BY MOUTH ONCE A DAY rosuvastatin 20 mg tablet 20 mg PO DAILY Qty: 90 3RF multivitamin 1 EACH tablet 1 each PO DAILY omeprazole 40 MG capsule,delayed release(DR/EC) 40 mg PO DAILY Label Comments: aspirin 81 MG tablet,delayed release (DR/EC) 81 mg PO DAILY tamsulosin 0.4 MG capsule 0.4 mg PO DAILY Label Comments: omega-3 fatty acids 300 mg capsule 1,200 mg PO DAILY metformin 500 mg tablet 1,000 mg PO BID Referrals Follow up/Referrals: Delores Evans APRN [Primary Care Provider] - See instructions Activity Restrictions/Add. Instructions Additional Instructions/Restrictions: *Monitor Temp, Over the counter Motrin or Tylenol as directed/as needed Tylenol every 4 hours and Motrin every 6 hours (as long as your family doctor has told you that you can take it) for fever or pain. and straight to ER if unable to lower temp less than 101.0 after medication given *Warm salt water gargles may help to soothe the throat *Throat Lozenges? *Warm fluids like tea with honey may help to soothe the throat? *Sleep elevated *Humidifier/Vaporizer Follow up IMMEDIATELY for new or worsening symptoms or no Noticeable improvement over the next 48-72 hours. 911 for difficulty breathing or swallowing Clinical Impressions Clinical Impression: Sinusitis Instructions Patient Instructions: DI for Sinusitis, Sinusitis Discharge ED Provider: April Chavez [facility] [place] HPI General Stated complaint: sinus pressure, cough Mode of Arrival: Ambulatory Source of Information: Patient Limitations: No Limitations Time Seen by Provider: 08/26/22 09:35 Description of Symptoms (Recalled from Triage Doc. by RN): PATIENT C/O COUGH AND SINUS CONGESTION X 2 DAYS HEENT Symptoms (Recalled from RN notes): Yes Resp Symptoms (Recalled from RN notes): Yes Skin Symptoms (Recalled from RN notes): No MS Symptoms (Recalled from RN notes): No Functional Status (Recalled from RN notes): WNL History of Present Illness Provider Complaint: Patient states that he has been having sinus pain and pressure and cough that has got worse over the last couple of days States that he thought last week he was just getting a cold but it has got worse so today he came in to get checked Related Data Home Medications Medication Instructions Recorded Confirmed aspirin 81 mg tablet,delayed 81 mg PO DAILY heart 11/26/17 05/26/22 release multivitamin 1 each PO DAILY Supplement 11/26/17 05/26/22 omeprazole 40 mg capsule,delayed 40 mg PO DAILY stomach 11/26/17 05/26/22 release tamsulosin 0.4 mg capsule 0.4 mg PO DAILY prostate 11/26/17 05/26/22 glipizide 5 mg tablet 5 mg PO DAILY 12/15/20 05/26/22 omega-3 fatty acids 300 mg capsule 1,200 mg PO DAILY Supplement 12/15/20 05/26/22 doxylamine succinate 25 mg tablet 25 mg PO HS PRN 03/10/22 05/26/22 (Sleep
[2022-08-26 10:18] VITALS: BP 140/90; PULSE 86; RESP 17; TEMP 36.8; O2SAT 100
== END 2022-08-26 10:24 | disposition home or self-care (01) ==
PROVIDERS: Emergency Provider Nurse Practitioner; PCP Nurse Practitioner Family
DX: J32.9 Chronic sinusitis, unspecified (principal)
CPT/HCPCS: 96372; 99212; G0463

== ENCOUNTER 2023-01-30 17:24 | Emergency (ER) | payer MEDICARE, SELFPAY ==
[2023-01-30 17:45] VITALS: BP 128/84; PULSE 81; RESP 20; TEMP 37.1; O2SAT 97; BMI 28.2
--- NOTE | 2023-01-30 18:01 | EXP.UTC ---
Discharge Plan Disposition Patient Disposition: Home, Self-Care Condition: Good Prescriptions Prescriptions: New ondansetron 4 mg Tablet,Disintegrating 4 mg PO Q8H PRN (Reason: Nausea) Qty: 12 0RF No Action Sleep Aid (doxylamine) 25 mg tablet 25 mg PO HS PRN levothyroxine 50 mcg tablet 75 mcg PO DAILY glipizide 5 mg tablet 5 mg PO DAILY Jardiance 10 mg tablet 10 mg PO DAILY Qty: 30 3RF bisoprolol fumarate 5 mg tablet See Rx Instructions .ROUTE .COMPLEX Qty: 30 5RF Dose Instruction: TAKE ONE TABLET BY MOUTH ONCE A DAY Rx Instructions: TAKE ONE TABLET BY MOUTH ONCE A DAY rosuvastatin 20 mg tablet 20 mg PO DAILY Qty: 90 3RF lisinopril 5 mg tablet 5 mg PO DAILY Qty: 90 3RF multivitamin 1 EACH tablet 1 each PO DAILY omeprazole 40 MG capsule,delayed release(DR/EC) 40 mg PO DAILY Label Comments: aspirin 81 MG tablet,delayed release (DR/EC) 81 mg PO DAILY tamsulosin 0.4 MG capsule 0.4 mg PO DAILY Label Comments: omega-3 fatty acids 300 mg capsule 1,200 mg PO DAILY metformin 500 mg tablet 1,000 mg PO BID Referrals Follow up/Referrals: Delores Evans APRN [Primary Care Provider] - See instructions Activity Restrictions/Add. Instructions Additional Instructions/Restrictions: Drink plenty of fluids. Take tylenol or ibuprofen for pain or fever. Take the medications as directed. Follow up with your regular doctor. GO TO THE ER FOR ANY WORSENING SYMPTOMS Return a stool sample so it can be analyzed for different infections. Clinical Impressions Clinical Impression: Gastroenteritis Instructions Patient Instructions: DI for Viral Gastroenteritis -- Adult, Diarrhea Discharge ED Provider: James Montanez [facility] General Stated complaint: Diarrhea Abd Pain Mode of Arrival: Ambulatory Source of Information: Patient Limitations: No Limitations Time Seen by Provider: 01/30/23 18:01 Description of Symptoms (Recalled from Triage Doc. by RN): diarrhea, upset stomach HEENT Symptoms (Recalled from RN notes): No Resp Symptoms (Recalled from RN notes): No Skin Symptoms (Recalled from RN notes): No MS Symptoms (Recalled from RN notes): No Functional Status (Recalled from RN notes): n/a History of Present Illness Provider Complaint: He states that for the past 3 days he has had diarrhea and nausea. He has not vomited but he has felt like he was going to. He denies any abdominal pain. His family members have had a gi virus recently. Related Data Home Medications Medication Instructions Recorded Confirmed aspirin 81 mg tablet,delayed 81 mg PO DAILY heart 11/26/17 01/05/23 release multivitamin 1 each PO DAILY Supplement 11/26/17 01/05/23 omeprazole 40 mg capsule,delayed 40 mg PO DAILY stomach 11/26/17 01/05/23 release tamsulosin 0.4 mg capsule 0.4 mg PO DAILY prostate 11/26/17 01/05/23 glipizide 5 mg tablet 5 mg PO DAILY 12/15/20 01/05/23 omega-3 fatty acids 300 mg capsule 1,200 mg PO DAILY Supplement 12/15/20 01/05/23 doxylamine succinate 25 mg tablet 25 mg PO HS PRN 03/10/22 01/05/23 (Sleep Aid (doxylamine)) metformin 500 mg tablet 1,000 mg PO BID Diabetes 03/10/22 01/05/23 levothyroxine 50 mcg tablet 75 mcg PO DAILY 01/05/23 Previous Rx's Medication Instructions Recorded empagliflozin 10 mg tablet 10 mg PO DAILY #30 tabs 07/07/21 (Jardiance) bisoprolol fumarate 5 mg tablet See Rx Instructions .Route 05/17/22 .COMPLEX #30 tabs rosuvastatin 20 mg tablet 20 mg PO DAILY #90 tabs 08/17/22 lisinopril 5 mg tablet 5 mg PO DAILY #90 tabs 09/20/22 ondansetron 4 mg disintegrating 4 mg PO Q8H PRN Nausea #12 tabs 01/30/23 tablet Allergies Allergy/AdvReac Type Severity Reaction Status Date / Time No Known Allergies Allergy Verified 01/30/23 18:00 Worker's Comp Is this a Worker's Comp case?: No [facility] Disclaimer: The information contained in this section may
[2023-01-30 18:35] VITALS: BP 128/84; PULSE 81; RESP 20; TEMP 37.1; O2SAT 97
== END 2023-01-30 18:35 | disposition home or self-care (01) ==
PROVIDERS: Emergency Provider Nurse Practitioner Family; PCP Nurse Practitioner Family
DX: K52.9 Noninfective gastroenteritis and colitis, unspecified (principal); R10.9 Unspecified abdominal pain; R11.0 Nausea; E11.9 Type 2 diabetes mellitus without complications; K21.9 Gastro-esophageal reflux disease without esophagitis; Z79.84 Long term (current) use of oral hypoglycemic drugs
CPT/HCPCS: 99212; 99214; G0463

== ENCOUNTER → 2023-07-11 11:25 | Outpatient (CLI) | payer MEDICARE, SELFPAY ==
--- NOTE | 2023-07-11 11:28 | XR_ITS ---
FINAL REPORT CLINICAL HISTORY: right wrist pain, swelling post injury 3 mo ago FINDINGS: AP, oblique, and lateral views of the right wrist were obtained. There is no prior exam for comparison. There is no acute fracture or dislocation. There is degenerative joint disease. The soft tissues are normal. IMPRESSION: No acute osseous abnormality of the right wrist. If pain persists, MR is recommended. Reviewed, Interpreted and Dictated by Amina Black MD Transcribed by Be Escobar Authenticated and [facility]
== END ==
PROVIDERS: PCP Nurse Practitioner Family; Visit Provider Nurse Practitioner Family
DX: M25.431 Effusion, right wrist (principal); S69.91XA Unspecified injury of right wrist, hand and finger(s), initial encounter; Y99.9 Unspecified external cause status
CPT/HCPCS: 73110

== ENCOUNTER → 2023-07-17 10:18 | Outpatient (CLI) | payer MEDICARE, SELFPAY ==
--- NOTE | 2023-07-17 10:33 | XR_ITS ---
FINAL REPORT CLINICAL HISTORY: cervical neck pain, numbness and tingling traveling down to right arm. FINDINGS: AP and lateral views were obtained. There is no acute fracture. There is no malalignment. There are moderate degenerative changes with multilevel osteophyte. IMPRESSION: Moderate degenerative disc disease. Reviewed, Interpreted and Dictated by Nick Ray III, MD Transcribed by Be Escobar Authenticated and [facility]
== END ==
PROVIDERS: PCP Nurse Practitioner Family; Visit Provider Nurse Practitioner Family
DX: M25.78 Osteophyte, vertebrae (principal); M50.30 Other cervical disc degeneration, unspecified cervical region; R20.0 Anesthesia of skin; R20.2 Paresthesia of skin
CPT/HCPCS: 72040

== ENCOUNTER → 2023-08-02 10:33 | Outpatient (CLI) | payer MEDICARE, SELFPAY ==
--- NOTE | 2023-08-02 10:39 | MR_ITS ---
FINAL REPORT CLINICAL HISTORY: PATIENT COMPLAINS OF RIGHT WRIST PAIN ON MEDIAL SIDE. FALL ONTO WRIST 3 MONTHS AGO. SWELLING AND HARD FLUID FILLED AREA. PAIN WITH USE OF WRIST. FINDINGS: Multiplanar MR imaging of the right wrist was performed without contrast. There is motion artifact on many sequences which limits exam sensitivity. Mild degenerative changes are seen. There is no fracture. There is a tear of the scapholunate ligament with dorsal angulation of the distal radius with an appearance consistent with DISI. There is a 20 mm low signal intensity mass medial to the distal ulna which may represent giant cell tumor of the tendon sheath or other mass. This does not appear to represent a cyst. There is extensor carpi ulnaris tenosynovitis with a small partial tear. The triangular fibrocartilage is intact. IMPRESSION: Tear of the scapholunate ligament with dorsal angulation at the distal radius with an appearance consistent with DISI. 22 mm low signal intensity mass medial to the distal ulna which may represent giant cell tumor of the tendon sheath or other mass. Extensor carpi ulnaris tenosynovitis with small partial tear. Reviewed, Interpreted and Dictated by Nick Ray III, MD Transcribed by Tiffani James Authenticated and [facility]
--- NOTE | 2023-08-02 10:39 | MR_ITS ---
FINAL REPORT CLINICAL HISTORY: PATIENT STATES NO NEW INJURY. HE HAS A HX F DDD WITH SPURRING. HE DESCIRBES NUMBNESS AND TINGLING THAT RADIATES DOWN RIGHT ARM INTO FINGERS. FINDINGS: Multiplanar MR imaging of the cervical spine was performed without contrast. On the sagittal T2-weighted images, disc degeneration is seen throughout. There are endplate changes at multiple levels. There is no evidence of fracture. The vertebral alignment is normal. The cervical spinal cord has an unremarkable appearance without evidence of mass, edema or syrinx. The cervicomedullary junction is normal. C2-3: Annular disc bulge with mild left neuroforaminal narrowing. C3-4: Disc osteophyte complex and small central disc protrusion. There is severe right and moderate left neuroforaminal narrowing. C4-5: Disc osteophyte complex with severe right and moderate left neuroforaminal narrowing. There is mild central canal stenosis with AP diameter of the thecal sac measuring 9 mm. C5-6: Disc osteophyte complex with severe right and moderate left neuroforaminal narrowing. There is mild central canal stenosis with AP diameter of the thecal sac measuring 9 mm. C6-7: Disc osteophyte complex with moderate right and severe left neuroforaminal narrowing. C7-T1: Annular disc bulge with mild bilateral neuroforaminal narrowing. IMPRESSION: Multilevel degenerative disc disease with severe neuroforaminal narrowing and mild canal stenosis as above. Reviewed, Interpreted and Dictated by Nick Ray III, MD Transcribed by Tiffani James Authenticated and [facility]
== END ==
LOC: RAD 10:33
PROVIDERS: PCP Nurse Practitioner Family; Visit Provider Nurse Practitioner Family
DX: M25.431 Effusion, right wrist (principal); S69.91XA Unspecified injury of right wrist, hand and finger(s), initial encounter; M25.78 Osteophyte, vertebrae; M50.30 Other cervical disc degeneration, unspecified cervical region; R20.0 Anesthesia of skin; R20.2 Paresthesia of skin
CPT/HCPCS: 72141; 73221

== ENCOUNTER → 2023-08-21 15:23 | Outpatient (CLI) | payer MEDICARE, SELFPAY ==
--- NOTE | 2023-08-21 15:32 | ECG_ITS ---
APPROVED REPORT Exam: Resting ECG HR:69 bpm ECG Measurements Heart Rate 69 AXES AK 166 P 51 QRSd 94 QRS 15 QT 388 T -4 QTc 407 Conclusion SINUS RHYTHM MINIMAL ST DEPRESSION [0.025+ mV ST DEPRESSION] BORDERLINE ECG UNCONFIRMED REPORT Electronically signed by : Arvind Saul MD 08/22/2023 21:13:22
--- NOTE | 2023-08-21 15:45 | XR_ITS ---
FINAL REPORT CLINICAL HISTORY: Pre Op for sx on wrist. No chest pain. Non-smoker. FINDINGS: A PA and lateral view of the chest were was performed. The heart is normal in size. There is mild calcified plaque in the aorta. The hilar regions are unremarkable. There is no edema or infiltrate. There is disc space narrowing in the thoracic spine. There is minimal anterior subluxation of T8 on T9. IMPRESSION: No acute cardiopulmonary process. Authenticated and [facility]
[2023-08-21 16:04] LABS: Basophils % 0.3 % (0.1-2.0); Eosinophils # 0.2 K/mm3 (0.0-0.4); Eosinophils % 2.9 % (0.1-12.0); Hematocrit 47.5 % (42.0-52.0); Hemoglobin 16.3 g/dL (14.1-18.0); Lymphocytes # 2.2 K/mm3 (0.7-4.5); Lymphocytes % 29.9 % (10-50); Mean Corpuscular HGB Conc 34.4 g/dL (31.8-35.4); Mean Corpuscular Hemoglobin 31.6 pg (27.0-31.2); Mean Corpuscular Volume 91.8 fl (80-94); Mean Platelet Volume 9.9 fl (7.4-10.4); Monocytes # 0.6 K/mm3 (0.1-1.0); Monocytes % 7.5 % (1.7-9.3); Neutrophils # 4.3 K/mm3 (1.8-7.8); Neutrophils % 59.4 % (37.0-80.0); Platelet Count 176 K/mm3 (142-424); Red Blood Count 5.17 M/mm3 (4.60-6.20); Red Cell Distribution Width 12.9 % (11.5-17.5); White Blood Count 7.3 K/mm3 (4.8-10.8)
[2023-08-21 16:33] LABS: Alanine Aminotransferase 25 U/L (12-78); Albumin Level 4.3 g/dl (3.5-5.0); Albumin/Globulin Ratio 1.8 (1.1-1.8); Alkaline Phosphatase 94 U/L (38-126); Anion Gap 13.1 mEq/L (5-15); Aspartate Amino Transferase 30 U/L (17-59); Bilirubin,Total 0.5 mg/dl (0.2-1.3); Blood Urea Nitrogen 17 mg/dl (9-20); Calcium 9.1 mg/dl (8.4-10.2); Carbon Dioxide 25 mmol/L (22.0-30.0); Chloride 104 mmol/L (98-107); Estimated Glomerular Filt Rate 83 ml/min (>60); GFR (African American) 101 ML/MIN (>60); Globulin 2.4 g/dL (1.3-3.2); Glucose 169 mg/dl (74-100); Potassium 4.1 mmoL/L (3.5-5.1); Sodium 138 mmol/L (136-145); Total Protein,Serum 6.7 g/dl (6.3-8.2)
== END ==
PROVIDERS: PCP Nurse Practitioner Family; Visit Provider Orthopaedic Surgery
DX: R22.31 Localized swelling, mass and lump, right upper limb (principal); R42 Dizziness and giddiness
CPT/HCPCS: 36415; 71046; 80053; 85025; 93005

== ENCOUNTER 2023-08-27 08:13 | Day surgery (SDC) | payer MEDICARE, SELFPAY ==
[2023-08-23 13:13] VITALS: BMI 28.2
[2023-08-27] VITALS (9 sets, daily range): BP systolic 157–167; BP diastolic 76–97; PULSE 51–62; RESP 12–18; TEMP 36.2–36.6; O2SAT 93–97
--- NOTE | 2023-08-27 09:19 | EXP.ANES.CKL ---
[facility] Disclaimer: The information contained in this section may have been updated after the patient was seen, as this information can be updated by other users. Medical History Abnormal ECG CAD (coronary artery disease) Daytime somnolence Diabetes mellitus, type 2 History of COVID-19 History of gastroesophageal reflux (GERD) Hypertension Wears hearing aid Surgical History History of colonoscopy History of tonsillectomy Hx of cholecystectomy Family History Daughter Cancer breast cancer Social History (Updated 08/27/23 @ 09:14 by Annetta Louise RN) Smoking Status: Never smoker alcohol intake: never substance use type: denies use current occupational status: retired Travel in the last 8 weeks: None household members: spouse housing: house caffeine: Yes [facility] Anesthesia Checklist Patient Identification Patient Identification: Arm Band, Family and Verbal (Name & ) Structural Data Admitted From: Home Planned Operative Procedure/s: Excision RT. wrist mass Consent for Planned Operative Procedure(s) Verified: Yes Verified Documents: Surgical Consent and History and Physical NPO Status Verified Time NPO: 22:00 Chart Verification Results Verified: CBC, BMP, ECG and Chest Xray Additional verifications Patient : No Anesthesia Reactions: No Hx Blood Transfusions: No Blood Transfusion Reaction: No Cephalosporin Allergy: No Previous Colonoscopy: No Cardiovascular Assessment Heart Sounds: S1 & S2 Pulse Rhythm: Irregular Peripheral Edema: No Airway Assessment Mallampati Score:: Class II C-Spine Mobility Assessed: Yes TMJ Mobility Assessed: Yes Dentition: Good Dentition (Nothing loose per pt.) Neurological Assessment Level of Consciousness: Awake, Alert, Appropriate and Follows Commands Hx Seizures: No Numbness or tingling in extremities: No Anesthesia Plan Anesthesia Risk discussed: Yes Anesthesia Plan: Verified ASA Class: II Anesthesia Type: General
--- NOTE | 2023-08-27 10:32 | EXP.ANES.I ---
[facility] Anesthesia Record Part I Anesthesia Record I Intake, IV Amount: 1,500 Hydration: Adequate Estimated blood loss (mL): 0 Urine output (mL): 0 Blood Pressure: 157/97 SaO2: 94 Pulse Rate: 52 Airway Patency: Patent Respiratory Rate: 12 Temperature: 97.8 F Patient is:: Awake and Stable Stable to PACU at:: 10:30
--- NOTE | 2023-08-27 10:47 | P.OP_ITS ---
Date of procedure: 08/27/23 Pre-op Diagnosis:: Soft tissue mass right wrist Post-op Diagnosis:: Same Procedure performed:: Excision soft tissue mass right ring Surgeon:: Ismael Noe DO CAREER PORTALS TEACHER:: Lokesh Carson Anesthesia: LMA Estimated blood loss (mL): 0 Operative findings:: Soft tissue mass right wrist Operative note:: Patient is identified preoperatively. Right wrist marked with yes my initials. Transported operative suite. Placed upon the operating bed. General anesthesia administered. Airway secured. Right wrist marked. Esmarch used to exsanguinate the extremity pneumatic tourniquet inflated 250 mmHg. Skin knife is used to incise the skin careful dissection was taken down with the scissors to identify soft tissue mass over the ulnar aspect of the right wrist. This was a noncystic hard mass adjacent to ECU tendon sheath. Careful dissection is taken down capsule open and soft tissue mass removed in its entirety. Irrigation of the wound performed closed with deep layers Vicryl stitch skin closed with 3-0 nylon. Sterile hand dressing placed patient waken anesthesia taken recovery in stable condition. Tourniquet time (min): 20 Condition: stable Disposition: PACU Specimens:: Soft tissue mass sent to lab for identification Complications:: None apparent
[2023-08-28 10:29] LABS: POC Glucose,Bedside 131 (70-110)
--- NOTE | 2023-08-29 10:19 | P.PNANES_ITS ---
[facility] Anesthesia Record Part II Anesthesia Record Part II Discharge Time: 11:00 Destination: Surgical Day Care (OP Surgery) PACU nurse assessment reviewed?: Yes Patient Condition:: Good Anesthesia Complications:: None Swallowing reflex intact?: Yes Airway Patency: Patent Cyanosis?: No Blood Pressure: 158/84 SaO2: 94 Respiratory Rate: 16 Pulse Rate: 55 Temperature: 97.6 F Mental Status: Alert & Oriented Pain level:: 0 Nausea and/or vomitting:: None Intake, IV Amount: 0 Hydration: Adequate
[2023-08-29 10:20] VITALS: BP 158/84; PULSE 55; RESP 16; TEMP 36.4; O2SAT 94
== END 2023-08-27 11:25 | disposition home or self-care (01) ==
PROVIDERS: PCP Nurse Practitioner Family; Visit Provider Orthopaedic Surgery
PROC: (CPT 26115; principal; 2023-08-27 10:15)
DX: D21.11 Benign neoplasm of connective and other soft tissue of right upper limb, including shoulder (principal); E11.9 Type 2 diabetes mellitus without complications; Z79.899 Other long term (current) drug therapy
CPT/HCPCS: 26115; 82962; 88307; 96374

== ENCOUNTER 2023-12-04 17:54 | Emergency (ER) | payer MEDICARE, SELFPAY ==
[2023-12-04 19:20] VITALS: BP 148/88; PULSE 80; RESP 16; TEMP 36.8; O2SAT 96; BMI 28.8
--- NOTE | 2023-12-04 19:30 | ED_ITS ---
Discharge Plan Disposition Patient Disposition: Home, Self-Care Condition: Good Prescriptions Prescriptions: New cephalexin 500 mg capsule 500 mg PO QID Qty: 40 0RF mupirocin 2 % ointment 1 applic topical TID 7 Days Qty: 15 0RF No Action Sleep Aid (doxylamine) 25 mg tablet 25 mg PO HS PRN (Reason: Sleep) levothyroxine 75 mcg tablet 75 mcg PO DAILY omega 2-clb-jpy-fish oil [Fish Oil] 1,000 mg (120 mg-180 mg) capsule 1 cap PO DAILY Jardiance 25 mg tablet 25 mg PO DAILY Qty: 30 2RF Trulicity 0.75 mg/0.5 mL pen injector 0.75 mg SQ rosuvastatin 20 mg tablet 20 mg PO DAILY Qty: 90 1RF lisinopril 5 mg tablet See Rx Instructions .ROUTE .COMPLEX Qty: 90 4RF Dose Instruction: TAKE ONE TABLET BY MOUTH ONCE A DAY Rx Instructions: TAKE ONE TABLET BY MOUTH ONCE A DAY glipizide 5 mg tablet See Rx Instructions .ROUTE .COMPLEX Qty: 30 2RF Dose Instruction: TAKE ONE TABLET BY MOUTH DAILY 30 MINUTES BEFORE BREAKFAST Rx Instructions: TAKE ONE TABLET BY MOUTH DAILY 30 MINUTES BEFORE BREAKFAST tamsulosin 0.4 mg capsule See Rx Instructions .ROUTE .COMPLEX Qty: 60 6RF Dose Instruction: TAKE 2 CAPSULES BY MOUTH ONCE A DAY Rx Instructions: TAKE 2 CAPSULES BY MOUTH ONCE A DAY bisoprolol fumarate 5 mg tablet 5 mg PO DAILY Rx Instructions: TAKE ONE TABLET BY MOUTH ONCE A DAY multivitamin 1 EACH tablet 1 each PO DAILY omeprazole 40 MG capsule,delayed release(DR/EC) 40 mg PO DAILY Patient Comments: aspirin 81 MG tablet,delayed release (DR/EC) 81 mg PO DAILY Referrals Follow up/Referrals: Delores Evans APRN [Primary Care Provider] - See instructions Activity Restrictions/Add. Instructions Additional Instructions/Restrictions: Keep the wound clean and dry. Watch the wound for signs of worsening infection, such as worsening redness, swelling, drainage, fever. etc. Take tylenol or ibuprofen for pain. Follow up with your regular doctor. GO TO THE ER FOR ANY WORSENING SYMPTOMS OR CONCERNS. Clinical Impressions Clinical Impression: Paronychia, Cellulitis of right hand, Diabetes Instructions Patient Instructions: Cellulitis, DI for Paronychia, Ceftriaxone Injection Discharge ED Provider: James Montanez [facility] General Stated complaint: infected left hand Time Seen by Provider: 12/04/23 19:30 History of Present Illness Provider Complaint: He states that for the past 2 weeks he has had redness and swelling around the nail on his left middle finger. He denies any injury. He is a diabetic. Related Data Home Medications Medication Instructions Recorded Confirmed aspirin 81 mg tablet,delayed 81 mg PO DAILY heart 11/26/17 11/01/23 release multivitamin 1 each PO DAILY Supplement 11/26/17 11/01/23 omeprazole 40 mg capsule,delayed 40 mg PO DAILY stomach 11/26/17 11/01/23 release doxylamine succinate 25 mg tablet 25 mg PO HS PRN Sleep 03/10/22 11/01/23 (Sleep Aid (doxylamine)) levothyroxine 75 mcg tablet 75 mcg PO DAILY 07/11/23 11/01/23 omega 1-vgj-dvj-fish oil 1,000 mg 1 cap PO DAILY 07/11/23 11/01/23 (120 mg-180 mg) capsule (Fish Oil) bisoprolol fumarate 5 mg tablet 5 mg PO DAILY 08/27/23 09/11/23 dulaglutide 0.75 mg/0.5 mL 0.75 mg SQ 11/01/23 11/01/23 subcutaneous pen injector (Trulicity) Previous Rx's Medication Instructions Recorded empagliflozin 25 mg tablet 25 mg PO DAILY #30 tabs 07/11/23 (Jardiance) rosuvastatin 20 mg tablet 20 mg PO DAILY #90 tabs 09/12/23 lisinopril 5 mg tablet See Rx Instructions .Route 11/13/23 .COMPLEX #90 tabs glipizide 5 mg tablet See Rx Instructions .Route 11/26/23 .COMPLEX #30 tabs tamsulosin 0.4 mg capsule See Rx Instructions .Route 11/30/23 .COMPLEX #60 caps cephalexin 500 mg capsule 500 mg PO QID #40 caps 12/04/23 mupirocin 2 % topical ointment 1 applic topical TID 7 days #15 12/04/23 grams Allergies Allergy/AdvReac Type Severity Reaction Status Date / Time No Known Allergies Allergy Verified 12/04/23 19:36 [facility] Disclaimer: The information contained in this section may have been updated after the patient was seen, as this information can be updated by other users. Medical History Abnormal ECG CAD (coronary artery disease) Daytime somnolence Diabetes mellitus, type 2 History of COVID-19 History of gastroesophageal reflux (GERD) Hypertension Wears hearing aid Surgical History History of colonoscopy History of tonsillectomy Hx of cholecystectomy Family History Daughter Cancer breast cancer Social History Smoking Status: Never smoker alcohol intake: never substance use type: denies use current occupational status: retired Travel in the last 8 weeks: None household members: spouse housing: house caffeine: Yes ROS Obtained: Yes All systems reviewed & no additional complaints except as documented Constitutional Constitutional: Denies chills and Denies fever(s) Eyes Eyes: Denies eye discharge ENT Ears, Nose, Mouth, and Throat: Denies dizziness, Denies otalgia and Denies sore throat Cardiovascular Cardiovascular: Denies chest pain Respiratory Respiratory: Denies shortness of breath, Denies chest congestion, Denies cough, Denies stridor and Denies wheezing Gastrointestinal Gastrointestingal: Denies nausea or vomiting Musculoskeletal Musculoskeletal: Reports system reviewed and no additional complaints, except as documented and Denies arthralgias Integumentary/Breasts Skin/Breast: Reports as per HPI Neurologic Neurologic: Denies dizziness and Denies paresthesias Allergic/Immunologic Allergic/Immunologic: Denies wheezing Physical Exam General General appearance: alert and in no apparent distress Head Head exam: atraumatic, normocephalic and normal inspection Eye Eye exam: Present normal appearance, PERRL and EOMI ENT ENT exam: Present normal exam, normal oropharynx, mucous membranes moist, TM's normal bilaterally and normal external ear exam Neck Neck exam: Present normal inspection, full ROM and trachea midline; Absent meningismus or lymphadenopathy Chest Chest inspection: Present normal inspection and symmetric chest wall rise; Absent tenderness Respiratory Respiratory exam: Present normal lung sounds bilaterally; Absent respiratory d istress Cardiovascular Cardiovascular exam: Present regular rate and normal rhythm; Absent JVD Abdominal Exam Abdominal exam: Present soft and normal bowel sounds; Absent distention, tenderness or guarding Extremities Exam Extremities exam: Present normal inspection, full ROM and normal capillary refill; Absent calf tenderness Back Exam Back exam: Present normal inspection; Absent tenderness Neurological Exam Neurological exam: Present alert and oriented X3 Psychiatric Psychiatric exam: Present normal affect and normal mood Skin Skin exam: Present erythema (there is erythema and swelling around the lateral nail fold of his left middle finger. ) Lymphatic Lymphatic Findings: no adenopathy Medical Decision Making Medical Records Medical records reviewed: No I reviewed the patient's medical records. Lefty Inquiry Pt receiving controlled substance: No
[2023-12-04] MEDS: cefTRIAXone 1GM VIAL 1 GM IM (19:43)
[2023-12-04] MEDS: LIDOCAINE 1% 5ML PF VIAL IM (19:43)
[2023-12-04 20:06] VITALS: BP 148/88; PULSE 80; RESP 16; TEMP 36.8; O2SAT 96
== END 2023-12-04 20:05 | disposition home or self-care (01) ==
PROVIDERS: Emergency Provider Nurse Practitioner Family; PCP Nurse Practitioner Family
DX: L03.012 Cellulitis of left finger (principal); E11.9 Type 2 diabetes mellitus without complications; I11.9 Hypertensive heart disease without heart failure; I25.10 Atherosclerotic heart disease of native coronary artery without angina pectoris; K21.9 Gastro-esophageal reflux disease without esophagitis; Z79.85 Long-term (current) use of injectable non-insulin antidiabetic drugs
CPT/HCPCS: 96372; 99212; 99214; G0463; J0696

== ENCOUNTER 2024-07-08 09:13 | Outpatient (CLI) | payer MEDICARE, SELFPAY ==
[2024-07-08 09:56] LABS: Basophils % 0.6 % (0.1-2.0); Eosinophils # 0.3 K/mm3 (0.0-0.4); Eosinophils % 4.5 % (0.1-12.0); Hematocrit 47.5 % (42.0-52.0); Hemoglobin 15.2 g/dL (14.1-18.0); Lymphocytes # 1.7 K/mm3 (0.7-4.5); Lymphocytes % 29.3 % (10-50); Mean Corpuscular HGB Conc 32.1 g/dL (31.8-35.4); Mean Corpuscular Hemoglobin 30.8 pg (27.0-31.2); Mean Corpuscular Volume 95.8 fl (80-94); Mean Platelet Volume 9.1 fl (7.4-10.4); Monocytes # 0.4 K/mm3 (0.1-1.0); Monocytes % 7.2 % (1.7-9.3); Neutrophils # 3.4 K/mm3 (1.8-7.8); Neutrophils % 58.4 % (37.0-80.0); Platelet Count 169 K/mm3 (142-424); Red Blood Count 4.95 M/mm3 (4.60-6.20); Red Cell Distribution Width 13.6 % (11.5-17.5); White Blood Count 5.8 K/mm3 (4.8-10.8)
[2024-07-08 10:37] LABS: Albumin Level 4.2 g/dl (3.5-5.0)
[2024-07-08 10:38] LABS: Chloride 110 mmol/L (98-107); Potassium 4.5 mmoL/L (3.5-5.1); Sodium 138 mmol/L (136-145)
[2024-07-08 10:40] LABS: Alanine Aminotransferase 25 U/L (12-78); Anion Gap 7.5 mEq/L (5-15); Aspartate Amino Transferase 25 U/L (17-59); Bilirubin,Unconjugated 0.6 mg/dL (0.0-1.1); Blood Urea Nitrogen 12 mg/dl (9-20); Carbon Dioxide 25 mmol/L (22.0-30.0); Estimated Glomerular Filt Rate 111 ml/min (>60); GFR (African American) 135 ML/MIN (>60)
[2024-07-08 10:41] LABS: Alkaline Phosphatase 70 U/L (38-126); Bilirubin,Direct 0.1 mg/dl (0.0-0.4); Bilirubin,Indirect 0.6 mg/dL (0.0-0.9); Bilirubin,Total 0.7 mg/dl (0.2-1.3); Calcium 9.3 mg/dl (8.4-10.2); Chol/HDL Ratio 2.5 (1-3.5); Cholesterol 124 mg/dl (140-200); Glucose 119 mg/dl (74-100); HDL Cholesterol 50 mg/dl (40-60); Total Protein,Serum 6.4 g/dl (6.3-8.2); Triglycerides 42 mg/dl (30-150); VLDL Cholesterol 8 mg/dL (0-40)
[2024-07-08 10:52] LABS: Direct LDL Cholesterol 58.23 mg/dL (100-129)
[2024-07-08 10:59] LABS: Free T4 (Free Thyroxine) 1.12 ng/dl (0.78-2.19)
[2024-07-08 11:13] LABS: Thyroid Stimulating Hormone 2.72 uIU/mL (0.465-4.68)
== END 2024-07-08 23:59 | disposition home or self-care (01) ==
LOC: LAB 09:15
PROVIDERS: PCP Nurse Practitioner Family; Visit Provider Physician Assistant
DX: R40.0 Somnolence (principal); E78.2 Mixed hyperlipidemia; I25.118 Atherosclerotic heart disease of native coronary artery with other forms of angina pectoris; E78.5 Hyperlipidemia, unspecified
CPT/HCPCS: 36415; 80048; 80061; 80076; 84439; 84443; 85025

== ENCOUNTER 2024-07-16 08:24 | Day surgery (SDC) | payer MEDICARE, SELFPAY ==
[2024-07-16] VITALS (11 sets, daily range): BP systolic 134–151; BP diastolic 78–111; PULSE 52–69; RESP 18–20; TEMP 36.6–36.9; O2SAT 90–100; BMI 28.5
--- NOTE | 2024-07-16 07:04 | IR_ITS ---
APPROVED REPORT Patient Location: Outpatient PROCEDURES Left heart catheterization Left ventriculogram Selective coronary angiogram Intravascular ultrasound to the LAD Drug-eluting stent deployment to the proximal to mid LAD Intravascular ultrasound to the ostial left main artery Drug-eluting stent deployment to the ostial proximal left main artery INDICATION Coronary artery disease, Angina pectoris, MLA less than 3 mm??? in the LAD Informed consent was obtained prior to the procedure. COMPLICATIONS none Estimated Blood Loss: less than 10ml TECHNIQUE One percent lidocaine used to anesthetize the right anterior aspect of the wrist. The right radial artery was accessed via the Seldinger technique. A 6 [place] sheath was placed in the right radial artery. 2.5 mg of Verapamil, 800 mcg of nitroglycerin, 1mg Lidocaine and 5000 U Heparin were given through the arterial sheath. The papa catheter was also used to perform left heart catheterization, left ventriculogram and selective coronary angiogram. There was dampening upon engagement of the left main artery of approximately 30 mmHg. Cardiac catheterization was performed following this intravascular ultrasound probe was advanced to evaluate the proximal and mid LAD as well as the left main artery. The MLA was less than 3 mm??? in the proximal to mid LAD with heavy calcified plaque and heavy plaque burden. Because of this a 3.5 x 30 mm [place] frontier stent was deployed at 14 nilson reducing the severe stenosis to 0%. Excellent angiograph results were obtained with AIDA-3 flow being present before and after the procedure. There continued to be dampening and ventricularization in the left main artery. There was moderate plaque in the ostium of the left main artery. Because of this a 4.5 x 12 mm [place] frontier stent was deployed at 20 nilson in the left coronary cusp extending into the left main artery. Excellent angiograph results were obtained. Following the stent to the left main artery intravascular sound probe was readvanced which demonstrated good stent expansion and nice stent apposition. At the end of the procedure the apparatus was removed the sheath was removed good hemostasis was achieved using TR banding patient was transferred to postop holding in stable condition. ANGIOGRAPHIC RESULTS The left main artery Has an ostial 50% stenosis The left anterior descending artery Has a proximal to mid 50 to 60% stenosis by angiography which proved to be greater than 90% by intravascular ultrasound criteria. There is additional 30 and 40% distal plaque. A small first diagonal artery has an ostial 50% stenosis while the second small diagonal artery is widely patent The circumflex artery Is nondominant and has proximal 50% concentric stenosis proximal to the first obtuse marginal artery The right coronary artery There is a dominant vessel and has mid vessel 30 to 40% stenoses. A large posterior descending artery has a 40% mid vessel stenosis while a large posterior lateral branch has a mid vessel 30% stenosis The FOREMAN ventriculogram reveals Normal 60% The left ventricular end-diastolic pressure Less than 10 mmHg IMPRESSION Severe proximal to mid LAD disease as described above with successful stenting reducing lesion to 0% with 1 drug-eluting stent Moderate stenosis in the ostial left main artery exceeding 50% with successful stenting reducing lesion to 0% with 1 drug-eluting stent Moderate disease in the circumflex artery with mild to moderate disease in the right coronary as described above Normal ejection fraction Normal left ventricular end-diastolic pressure PLAN 1. Effient and aspirin 2. LDL less than 55 achieved high intensity statin 3. Cardiac rehabilitation 4. LDL less than 55 to be 2 that high intensity statin 5. Risk factor modification Electronically signed by : Linus Harrison MD 07/16/2024 11:20:52
[2024-07-16 08:44] LABS: Basophils % 0.6 % (0.1-2.0); Eosinophils # 0.3 K/mm3 (0.0-0.4); Eosinophils % 5.3 % (0.1-12.0); Hematocrit 44.6 % (42.0-52.0); Hemoglobin 14.7 g/dL (14.1-18.0); Lymphocytes # 1.5 K/mm3 (0.7-4.5); Lymphocytes % 29.3 % (10-50); Mean Corpuscular HGB Conc 32.9 g/dL (31.8-35.4); Mean Corpuscular Hemoglobin 32.1 pg (27.0-31.2); Mean Corpuscular Volume 97.5 fl (80-94); Mean Platelet Volume 9.6 fl (7.4-10.4); Monocytes # 0.4 K/mm3 (0.1-1.0); Monocytes % 7.8 % (1.7-9.3); Platelet Count 150 K/mm3 (142-424); Red Blood Count 4.57 M/mm3 (4.60-6.20); Red Cell Distribution Width 13.7 % (11.5-17.5); White Blood Count 5.3 K/mm3 (4.8-10.8)
[2024-07-16 08:49] LABS: Chloride 107 mmol/L (98-107); Sodium 137 mmol/L (136-145)
[2024-07-16 08:52] LABS: Blood Urea Nitrogen 17 mg/dl (9-20); Creatinine Clearance Estimated 77 mL/min (50-200); Estimated Glomerular Filt Rate 111 ml/min (>60); GFR (African American) 135 ML/MIN (>60)
[2024-07-16 08:53] LABS: Calcium 9.1 mg/dl (8.4-10.2); Carbon Dioxide 26 mmol/L (22.0-30.0); Glucose 130 mg/dl (74-100)
[2024-07-16] MEDS: VERAPAMIL 2.5MG/ML 2ML VIAL 2.5 MG IV (10:34)
[2024-07-16] MEDS: LIDOCAINE 1% 10ML MDV 20 ML IJ (10:34)
[2024-07-16] MEDS: diphenhydrAMINE 50MG/ML VIAL 50 MG IV (10:34)
[2024-07-16] MEDS: FENTANYL 100MCG/2ML VIAL 50 MCG IV (10:35)
[2024-07-16] MEDS: MIDAZOLAM HCL 1MG/1ML 5ML VIAL 1 MG IV (10:35)
[2024-07-16] MEDS: 0.9 % SODIUM CHLORIDE 500 ML 25 ML IV (10:35)
[2024-07-16] MEDS: HEPARIN 1,000 UNITS/500ML NS (CATH LAB) 3000 UNIT IV (10:35)
[2024-07-16] MEDS: NITROGLYCERIN 800MCG/8ML SYR (CATH LAB) 800 MCG IA (10:36)
[2024-07-16] MEDS: HEPARIN 1,000 UNITS/ML 10ML VIAL (CATH LAB) 10000 UNIT IV (10:56)
[2024-07-16] MEDS: PRASUGREL 10MG TAB 60 MG PO (11:33)
[2024-07-16] MEDS: IOPAMIDOL-370 (76%);100ML BOTTLE 120 ML IV (11:45)
[2024-07-16 11:49] LABS: CATHL Activated Clotting Time 342 SEC (74-125)
== END 2024-07-16 14:25 | disposition home or self-care (01) ==
PROVIDERS: PCP Nurse Practitioner Family; Visit Provider Internal Medicine
DX: E78.2 Mixed hyperlipidemia; I25.118 Atherosclerotic heart disease of native coronary artery with other forms of angina pectoris; R40.0 Somnolence; Z79.899 Other long term (current) drug therapy; R06.02 Shortness of breath; Z86.16 Personal history of COVID-19; E11.9 Type 2 diabetes mellitus without complications; I10 Essential (primary) hypertension
CPT/HCPCS: 36415; 80048; 85025; 85347; 92928; 92978; 92979; 93458; 99152; 99153; C1725; C1769; C1874; C9600; J1200; J1644; J2250; J3010; Q9967

== ENCOUNTER 2024-07-17 09:16 | Outpatient (CLI) | payer MEDICARE, SELFPAY ==
[2024-07-17 09:40] LABS: Basophils % 0.4 % (0.1-2.0); Eosinophils # 0.3 K/mm3 (0.0-0.4); Eosinophils % 4.1 % (0.1-12.0); Hematocrit 46.7 % (42.0-52.0); Hemoglobin 15.3 g/dL (14.1-18.0); Lymphocytes # 1.8 K/mm3 (0.7-4.5); Mean Corpuscular HGB Conc 32.7 g/dL (31.8-35.4); Mean Corpuscular Hemoglobin 31.2 pg (27.0-31.2); Mean Corpuscular Volume 95.3 fl (80-94); Mean Platelet Volume 8.3 fl (7.4-10.4); Monocytes # 0.5 K/mm3 (0.1-1.0); Monocytes % 6.1 % (1.7-9.3); Neutrophils # 4.9 K/mm3 (1.8-7.8); Neutrophils % 65.4 % (37.0-80.0); Platelet Count 168 K/mm3 (142-424); Red Cell Distribution Width 13.6 % (11.5-17.5); White Blood Count 7.6 K/mm3 (4.8-10.8)
[2024-07-17 09:59] LABS: Chloride 106 mmol/L (98-107); Potassium 3.9 mmoL/L (3.5-5.1); Sodium 137 mmol/L (136-145)
[2024-07-17 10:02] LABS: Anion Gap 11.9 mEq/L (5-15); Blood Urea Nitrogen 13 mg/dl (9-20); Calcium 8.7 mg/dl (8.4-10.2); Carbon Dioxide 23 mmol/L (22.0-30.0); Estimated Glomerular Filt Rate 111 ml/min (>60); GFR (African American) 135 ML/MIN (>60); Glucose 120 mg/dl (74-100)
== END 2024-07-17 23:59 | disposition home or self-care (01) ==
LOC: LAB 09:18
PROVIDERS: PCP Nurse Practitioner Family; Visit Provider Internal Medicine
DX: I25.118 Atherosclerotic heart disease of native coronary artery with other forms of angina pectoris (principal); R06.00 Dyspnea, unspecified; R94.31 Abnormal electrocardiogram [ECG] [EKG]; Q24.5 Malformation of coronary vessels; E78.2 Mixed hyperlipidemia
CPT/HCPCS: 36415; 80048; 85025

== ENCOUNTER 2024-08-06 10:23 | Outpatient (CLI) | payer MEDICARE, SELFPAY ==
--- NOTE | 2024-08-06 10:29 | CA_ITS ---
APPROVED REPORT EXAM: Comprehensive 2D, Doppler, and color-flow Echocardiogram Assistant Infant Teacher: YOSEPH Webb, RVS Ht: 5 ft 6 in Wt: 177lbs BSA: 1.90 BP: 143/64 mmHg Indications: CP, Neck pain, Arm numbness,CAD-stents, DM, Abn EKG, HTN, HLD 2D Dimensions IVSd 1.38 cm M: 0.6-1.2 LVEF (Visual) 43.10 % PWd 1.07 cm M: 0.6 - 1.2 LA Volume 55.20 mL LVDd 4.15 cm M: 4.2 - 5.9 LA Volume Index 29.639980 mL/m2 (M/F) 16-34 LVDs 3.28 cm M: 2.5 - 4.0 Left Atrium 3.64 cm M: 3.0 - 4.0 M-Mode Dimensions RVDd 3.21 cm (0.9-2.6) LA Diam 4.13 cm (1.9-4.0) LVDd 4.60 cm (3.5-5.7) LVDs 3.25 cm (3.5-5.7) IVSd 1.50 cm (0.6-1.1) PWd 1.18 cm (0.6-1.1) EF (Teich) 56.30% EPSs 0.90 cm FS 29.30% EDV (Teich) 97.30 mL TAPSE 2.02 (<1.7) ESV (Teich) 42.50 mL LV Diastology E Decel Time 300 (160-240 msec) E/A Ratio 0.74 MED A' 8.40 cm/s LAT A' 9.30 cm/s Aortic Valve MANDI Index 1.18 cm2/m2 AoV Peak Carlos. 118.0 (50-130 cm/s) AO Peak GR. 5.60 mmHg AO Mean GR. 2.80 (<5 mmHg) AO VTI 23.5 (18-25 cm) MANDI (VTI) 2.29 (2.5-4.5 cm2) Mitral Valve MV A Velocity 74.0 (40-130 cm/s) E/A Ratio 0.74 Pulmonary Valve PV Peak Velocity 87.0 (50-150 cm/s) NY End VMAX 140.0 cm/s Tricuspid Valve TR P. Velocity 188.00 cm/s RAP Estimate 10.00 mmHg RVSP 24.10 mmHg Left Ventricle The left ventricle is normal size. The left ventricular systolic function is normal. The left ventricular ejection fraction is within the normal range. There is increased LV wall thickness. There is normal LV segmental wall motion. The left ventricular diastolic function is normal. LVEF is 55%. Right Ventricle Right ventricle is mildly dilated. The right ventricular systolic function is normal. Atria The left atrium is mildly dilated. The right atrium is mildly dilated. There is no Doppler evidence of interatrial shunt. Aortic Valve The aortic valve is mildly thickened. There is no aortic valvular stenosis. No aortic regurgitation is present. Mitral Valve The mitral valve is normal in structure. No evidence of mitral valve stenosis. Trace mitral regurgitation. Tricuspid Valve Tricuspid valve is grossly normal in structure and function. Trace tricuspid regurgitation. There is insufficient TR jet to estimate RVSP. Pulmonic Valve The pulmonary valve is normal in structure. Trace pulmonic regurgitation. Great Vessels The aortic root is normal in size. The ascending aorta is normal in size. IVC is normal in size and collapses >50% with inspiration. Pericardium There is no pericardial effusion. Other Information Study Quality: Fair Conclusion Normal biventricular systolic function. Mild biatrial dilation. No significant valvular stenosis or regurgitation. Electronically signed by : Kandis Magaña MD 08/12/2024 11:53:55
== END 2024-08-06 23:59 | disposition home or self-care (01) ==
LOC: RT 10:24
PROVIDERS: PCP Nurse Practitioner Family; Visit Provider Physician Assistant
DX: I51.7 Cardiomegaly (principal); Q24.5 Malformation of coronary vessels; I25.118 Atherosclerotic heart disease of native coronary artery with other forms of angina pectoris; R94.31 Abnormal electrocardiogram [ECG] [EKG]; E11.9 Type 2 diabetes mellitus without complications; E78.2 Mixed hyperlipidemia
CPT/HCPCS: 93306

== ENCOUNTER 2024-11-13 10:29 | Outpatient (CLI) | payer MEDICARE, SELFPAY ==
--- NOTE | 2024-11-13 10:54 | CA_ITS ---
APPROVED REPORT EXAM: Limited 2D Echocardiogram Hog Feeder: Aarti Khan CRT Ht: 5 ft 6 in Wt: 175lbs BSA: 1.89 BP: 134/92 mmHg Indications: Chest Pain, Diabetes, Hyperlipidemia, Hypertension/HDD M-Mode Dimensions RVDd 2.80 cm (0.9-2.6) LA Diam 3.41 cm (1.9-4.0) LVDd 4.29 cm (3.5-5.7) LVDs 3.11 cm (3.5-5.7) IVSd 1.88 cm (0.6-1.1) PWd 1.00 cm (0.6-1.1) EF (Teich) 53.80% FS 27.50% EDV (Teich) 82.60 mL ESV (Teich) 38.20 mL Other Information Study Quality: Fair Conclusion This is a limited TTE to evaluate for LV systolic function and wall motion. Limited windows are obtained. The left ventricle is normal in size. There is increased LV wall thickness. There are no regional wall motion abnormalities noted. LVEF is 60%. Electronically signed by : Kandis Magaña MD 11/13/2024 11:50:40
[2024-11-13 11:37] LABS: Basophils % 0.4 % (0.1-2.0); Eosinophils # 0.2 K/mm3 (0.0-0.4); Eosinophils % 2.6 % (0.1-12.0); Hematocrit 46.4 % (42.0-52.0); Lymphocytes # 1.7 K/mm3 (0.7-4.5); Lymphocytes % 23.6 % (10-50); Mean Corpuscular HGB Conc 34.5 g/dL (31.8-35.4); Mean Corpuscular Hemoglobin 30.2 pg (27.0-31.2); Mean Corpuscular Volume 87.7 fl (80-94); Mean Platelet Volume 11.7 fl (7.4-10.4); Monocytes # 0.6 K/mm3 (0.1-1.0); Monocytes % 9.1 % (1.7-9.3); Neutrophils # 4.5 K/mm3 (1.8-7.8); Platelet Count 174 K/mm3 (142-424); Red Blood Count 5.29 M/mm3 (4.60-6.20)
[2024-11-13 12:23] LABS: Albumin Level 4.4 g/dl (3.5-5.0); Chloride 106 mmol/L (98-107); Potassium 4.3 mmoL/L (3.5-5.1); Sodium 139 mmol/L (136-145)
[2024-11-13 12:26] LABS: Alanine Aminotransferase 29 U/L (12-78); Alkaline Phosphatase 82 U/L (38-126); Anion Gap 15.3 mEq/L (5-15); Aspartate Amino Transferase 29 U/L (17-59); Bilirubin,Direct 0.1 mg/dl (0.0-0.4); Bilirubin,Indirect 0.9 mg/dL (0.0-0.9); Bilirubin,Unconjugated 0.9 mg/dL (0.0-1.1); Blood Urea Nitrogen 13 mg/dl (9-20); Calcium 9.1 mg/dl (8.4-10.2); Carbon Dioxide 22 mmol/L (22.0-30.0); Erythrocyte Sedimentation Rate 1 mm/hr (0-20); Estimated Glomerular Filt Rate 111 ml/min (>60); GFR (African American) 134 ML/MIN (>60); Glucose 148 mg/dl (74-100); Total Protein,Serum 6.4 g/dl (6.3-8.2)
[2024-11-13 13:18] LABS: C-Reactive Protein 0.8 mg/L (0-4)
== END 2024-11-13 23:59 | disposition home or self-care (01) ==
PROVIDERS: PCP Nurse Practitioner Family; Visit Provider Physician Assistant
DX: R07.89 Other chest pain (principal); Q24.5 Malformation of coronary vessels; E78.2 Mixed hyperlipidemia; E11.69 Type 2 diabetes mellitus with other specified complication; R94.31 Abnormal electrocardiogram [ECG] [EKG]; I25.118 Atherosclerotic heart disease of native coronary artery with other forms of angina pectoris; K21.9 Gastro-esophageal reflux disease without esophagitis
CPT/HCPCS: 36415; 80048; 80076; 85025; 85651; 86140; 93308

== ENCOUNTER → 2025-02-25 10:11 | Day surgery (SDC) | payer MEDICARE, SELFPAY ==
[2025-02-25] VITALS (13 sets, daily range): BP systolic 107–131; BP diastolic 66–91; PULSE 56–87; RESP 18–20; TEMP 36.6; O2SAT 91–98; BMI 28.5
--- NOTE | 2025-02-25 07:13 | IR_ITS ---
APPROVED REPORT Patient Location: Outpatient PROCEDURES Left heart catheterization Left ventriculogram Selective coronary angiogram INDICATION Accelerated angina pectoris, Known coronary artery disease with history of unprotected left main stenting, Informed consent was obtained prior to the procedure. COMPLICATIONS NONE Estimated Blood Loss: LESS THAN 10 ML TECHNIQUE One percent lidocaine used to anesthetize the right anterior aspect of the wrist. The right radial artery was accessed via the Seldinger technique. A 6 [place] sheath was placed in the right radial artery. 2.5 mg of Verapamil, 800 mcg of nitroglycerin, 1mg Lidocaine and 5000 U Heparin were given through the arterial sheath. The JL3 catheter was also used to perform left heart catheterization, left ventriculogram and selective coronary angiogram. At the end of the procedure the sheath was removed good hemostasis was achieved using Traclet band, patient was transferred to the postop holding area in stable condition. ANGIOGRAPHIC RESULTS The left main artery Has a stent in the ostial proximal segment which is widely patent free of in-stent restenosis with excellent proximal distal transitioning The left anterior descending artery Has a stent in the proximal segment which is widely patent and free of in-stent restenosis with excellent distal and proximal transitioning. There is a small myocardial bridge compressing 30% in the mid LAD. The LAD is large and wraps the apex. A medium to large first diagonal artery has an ostial smooth 60 to 70% stenosis The circumflex artery Nondominant widely patent The right coronary artery Large dominant with proximal 10 to 20% stenosis mid vessel and distal 20% stenoses The FOREMAN ventriculogram reveals Normal 65% The left ventricular end-diastolic pressure 10 mmHg IMPRESSION Coronary artery disease as described above Moderate disease in a large first diagonal artery which is widely patent accompanied by AIDA-3 flow and unlikely to be producing angina Normal ejection fraction Normal LVEDP PLAN 1. Add Ranexa in the event this is microvascular disease 2. Treatment of noncardiac symptoms 3. Continue with strong and aggressive risk factor modification Electronically signed by : Linus Harrison MD 02/25/2025 12:31:39
[2025-02-25 10:33] LABS: Basophils % 0.5 % (0.1-2.0); Eosinophils # 0.2 Kmm3 (0.0-0.4); Eosinophils % 3.1 % (0.1-12.0); Hematocrit 44.5 % (42.0-52.0); Hemoglobin 15.7 g/dL (14.1-18.0); Immature Granulocytes # 0.02 10^3uL; Immature Granulocytes % 0.4 %; Lymphocytes # 1.6 K/mm3 (0.7-4.5); Lymphocytes % 28.7 % (10-50); Mean Corpuscular HGB Conc 35.3 g/dL (31.8-35.4); Mean Corpuscular Volume 87.9 fl (80-94); Mean Platelet Volume 11.3 fl (7.4-10.4); Monocytes # 0.5 K/mm3 (0.1-1.0); Monocytes % 9.1 % (1.7-9.3); Neutrophils # 3.2 K/mm3 (1.8-7.8); Neutrophils % 58.2 % (37.0-80.0); Nucleated Red Blood Cells # 0 10^3/uL; Nucleated Red Blood Cells % 0 %; Platelet Count 175 K/mm3 (142-424); Red Blood Count 5.06 M/mm3 (4.60-6.20); Red Cell Distribution Width 12.6 % (11.5-17.5); Red Cell Distribution Width-SD 40.9 fL; White Blood Count 5.5 K/mm3 (4.8-10.8)
[2025-02-25 10:42] LABS: Anion Gap 7.3 mEq/L (5-15); Blood Urea Nitrogen 13 mg/dl (9-20); Calcium 8.6 mg/dl (8.4-10.2); Carbon Dioxide 24 mmol/L (22.0-30.0); Chloride 112 mmol/L (98-107); Creatinine Clearance Estimated 76 mL/min (50-200); Estimated Glomerular Filt Rate 111 ml/min (>60); GFR (African American) 134 ML/MIN (>60); Glucose 115 mg/dl (74-100); Potassium 4.3 mmoL/L (3.5-5.1); Sodium 139 mmol/L (136-145)
[2025-02-25] MEDS: NITROGLYCERIN 800MCG/8ML SYR (CATH LAB) 800 MCG IA (12:11)
[2025-02-25] MEDS: VERAPAMIL 2.5MG/ML 2ML VIAL 2.5 MG IV (12:11)
[2025-02-25] MEDS: HEPARIN 1,000 UNITS/ML 10ML VIAL (CATH LAB) 5000 UNIT IV (12:11)
[2025-02-25] MEDS: LIDOCAINE 1% 10ML MDV 10 ML IJ (12:11)
[2025-02-25] MEDS: diphenhydrAMINE 50MG/ML VIAL 50 MG IV (12:12)
[2025-02-25] MEDS: HEPARIN 1,000 UNITS/500ML NS (CATH LAB) 3000 UNIT IV (12:12)
[2025-02-25] MEDS: 0.9 % SODIUM CHLORIDE 500 ML 25 ML IV (12:12)
[2025-02-25] MEDS: MIDAZOLAM HCL 1MG/ML 5ML VIAL 1 MG IV (12:28)
[2025-02-25] MEDS: FENTANYL 100MCG/2ML VIAL 50 MCG IV (12:29)
[2025-02-25] MEDS: IOPAMIDOL-370 (76%);100ML BOTTLE 60 ML IV (13:27)
== END | disposition home or self-care (01) ==
LOC: CATHLAB 10:12
PROVIDERS: PCP Nurse Practitioner Family; Visit Provider Internal Medicine
PROC: 4A023N7 Measurement of Cardiac Sampling and Pressure, Left Heart, Percutaneous Approach (ICD-10-PCS; CPT 93452; principal; 2025-02-25 11:00)
DX: I25.118 Atherosclerotic heart disease of native coronary artery with other forms of angina pectoris (principal); R06.02 Shortness of breath; Z95.5 Presence of coronary angioplasty implant and graft; Z79.899 Other long term (current) drug therapy; E11.9 Type 2 diabetes mellitus without complications; Z79.85 Long-term (current) use of injectable non-insulin antidiabetic drugs; Q24.5 Malformation of coronary vessels; E78.5 Hyperlipidemia, unspecified; Z79.84 Long term (current) use of oral hypoglycemic drugs
CPT/HCPCS: 36415; 80048; 85025; 93458; 99152; C1725; C1769; J1200; J1644; J3010; Q9967

== ENCOUNTER 2025-03-31 14:48 | Outpatient (CLI) | payer MEDICARE, SELFPAY ==
--- OUTSIDE RECORDS SUMMARY | 2025-03-31 14:50 | XMS_ITS | Encounter Summary ---
Author Organization Healthcare Address [address] [id number] Care Team Providers Care Pipe Fitter Ammonia Name Role Phone Arvind Kearns MD Primary Care Provider [phone] Delores Evans APRN Primary Care Provider [phone] Reason for Visit * Reason Comments Med Refill Encounter Details Date Type Department Care Team (Late st Contact Info) Description 06/22/2021 Refill [place] [facility] Endocrinology [address] [place] [address] Sherry Tucker, ETHYLBENZENE CRACKING SUPERVISOR [address] [address] Social History Tobacco Use Types Packs/Day Years Used Date Smoking Tobacco: Never Smokeless Tobacco: Never Alcohol Use Standard Drinks/Week Comments No 0 (1 standard drink = 0.6 oz pur e alcohol) Sex and Gender Information Value Date Recorded Sex Assigned at Not on file Legal Sex Male 6:00 PM EDT Gender Identity Not on file Sexual Orientation Not on file documented as of this encounter Plan of Treatment Not on file documented as of this encounter Visit Diagnoses Not on filedocumented in this encounter Care Teams Pipe Fitter Ammonia Relationship Specialty Start Date End Date Arvind Kearns MD [address] [place] [address] PCP - General 02/25/21 09/11/23 Delores Evans APRN [address] [place] [address] PCP - General 09/12/23 documented as of this encounter
--- OUTSIDE RECORDS SUMMARY | 2025-03-31 14:50 | XMS_ITS | Encounter Summary ---
Author Organization Healthcare Address [address] [id number] Care Team Providers Care Inspector And Unloader Name Role Phone Arvind Kearns MD Primary Care Provider [phone] Delores Evans APRN Primary Care Provider [phone] Reason for Visit * Reason Comments Med Refill Encounter Details Date Type Department Care Team (Late st Contact Info) Description 04/29/2021 Refill [place] [facility] Endocrinology [address] [place] [address] Sherry Tucker, [employer] [address] [address] Social History Tobacco Use Types [...] on filedocumented in this encounter Care Teams Inspector And Unloader Relationship Specialty Start Date End Date Arvind Kearns MD [address] [place] [address] PCP - General 02/25/21 09/11/23 Delores Evans APRN [address] [place] [address] PCP - General 09/12/23 documented as of this encounter
--- OUTSIDE RECORDS SUMMARY | 2025-03-31 14:50 | XMS_ITS | Encounter Summary ---
Author Organization Healthcare Address [address] [place] [address] Care Team Providers Care Shoveler Name Role Phone Arvind Kearns MD Primary Care Provider [phone] Delores Evans APRN Primary Care Provider [phone] Reason for Visit * Reason Comments Med Refill Encounter Details Date Type Department Care Team (Late st Contact Info) Description [facility] [address] [place] [address] Sherry Tucker APRN 2195 [facility] [address] [place] [address] Social History Tobacco Use Types Packs/Day [...] on file documented as of this encounter Miscellaneous Notes * Telephone Encounter - Sherry Tucker APRN - 08/25/2021 8:29 AM EST I think that the pharmacy sent it to us bey accident. * Telephone Encounter - Sherry Tucker APRN - 08/23/2021 2:04 PM EST I believe he has been seeing his PCP in past for hypothyroidism. documented in this encounter Plan of Treatment Not on file documented as of this encounter Visit Diagnoses Not on filedocumented in this encounter Additional Health Concerns Assessment Noted Time A fall risk assessment has been complete d for the patient 07/18/2021 3:14 PM EDT documented as of this encounter Care Teams Shoveler Relationship Specialty Start Date End Date Arvind Kearns MD [address] [place] [address] PCP - General 02/25/21 09/11/23 Delores Evans APRN [place] [address] PCP - General 09/12/23 documented as of this encounter
--- OUTSIDE RECORDS SUMMARY | 2025-03-31 14:50 | XMS_ITS | Clinical Summary ---
Author Organization Healthcare Address [address] [place] [address] Care Team Providers Care Senior Svp Name Role Phone Delores Evans NANCY Primary Care Provider [phone] Allergies No known active allergies Medications Aspirin Buf,CaCarb-MgCar b-MgO, 81 MG tablet 11/12/2019 Active Multiple Vitamins-Mineral s (Multi For Him) capsule 11/12/2019 Active omeprazole (PriLOSEC) [address] capsule 11/12/2019 Active tamsulosin (Flomax) 0.4 MG 24 hr capsule 11/12/2019 Activ e Jardiance 25 MG 07/11/2023 Act mukul levothyroxine (Synthroid, Levoxyl) 75 MCG tablet 08/15/2023 Active lisinopril 5 MG tablet 09/11/2023 Active bisoprolol (Zebeta) 5 MG tablet Take 1 tablet (5 mg) by mouth 1 (one) time each day. Active [place]-3 Fatty Acids (Fish Oil Burp-Less) 1200 MG capsule Take 1,200 mg by mouth 1 (one) time each day. Active doxylamine (Sleep Aid) 25 MG tablet Take 1 tablet (25 mg) by mouth at night if needed for sleep. Active rosuvastatin (Crestor) 20 MG tablet 05/15/2024 Active dulaglutide (Trulicity) 1.5 MG/0.5ML solution pen-injector inj. pen Inject 1.5 mg under the skin 1 (one) time per week. 6 mL 3 06/04/2024 Active prasugrel (Effient) 10 MG tablet 1 tablet (10 mg). 07/16/2024 Active Active Problems Problem Noted Date Diagnosed Date Type 2 diabetes mellitus wit h hyperglycemia, without long-term current use of insulin 11/12/2019 Hyperlipidemia Hypertension Family History Medical History Relation Name Comments Other cancer Mother Heart attack Other Other cancer Sister Relation Name Status Comments Mother Other Sister Social History Tobacco Use Types Packs/Day Years Used Date Smoking Tobacco: Never Smokeless Tobacco: Never Tobacco Cessation:Counseling Given: Not Answered Alcohol Use Standard Drinks/Week Comments No 0 (1 standard drink = 0.6 oz pur e alcohol) PHQ-2 Answer Date Recorded Patient Health Questionnaire-2 Score 0 09/12/2023 PHQ-2A Answer Date Recorded Patient Health Questionnaire-2 Score 0 09/12/2023 Sex and Gender Information Value Date Recorded Sex Assigned at Not on file Legal Sex Male 6:00 PM EDT Gender Identity Not on file Sexual Orientation Not on file Last Filed Vital Signs Vital Sign Reading Time Taken Comments Blood Pressure 148/90 09/04/2024 10:52 AM EST Pulse 65 09/04/2024 10:52 AM EST Temperature 36.7 C (98 F) 11/12/2019 9:32 AM EST Respiratory Rate - - Oxygen Saturation - - Inhaled Oxygen Concentration - - Weight 80.4 kg (177 lb 4 oz) 09/04/2024 10:29 AM EST Height 167.6 cm (5' 6 ) 09/04/2024 10:29 AM EST Body Mass Index 28.61 09/04/2024 10:29 AM EST Plan of Treatment Health Maintenance Due Date Last Done Comments [facility]-Hepatitis C Screening 1950 [facility]-Medicare Annual Wellness (AWV) 1950 [facility]-Infant/Child/Adol SDOH Screenings 1952 Diabetes: Dental Exam 1962 [facility]- SDOH Screenings 1970 [facility]-Adult SDOH Screenings 1970 [facility]-Pneumococcal Vaccine: 50+ Years (1 of 2 - PCV) 1971 [facility]-DTaP,Tdap,and Td Vaccines (1 - Tdap) 12/17/1996 12/16/1996 CT Colonography 1997 Colonoscopy 1997 FIT-DNA 1997 FIT 1997 FOBT 1997 Sigmoidoscopy 1997 [facility]-Colorectal Cancer Screening 1997 [facility]-Zoster Vaccines (1 of 2) 2002 [id number] Vaccine (2 - season) 2024 08/27/2021 [facility]-Depression Screening 09/12/2024 09/12/2023 [facility]-Diabetes: Hemoglobin A1C 12/04/2024, 06/04/2024, 09/12/2023, Additional history exists [facility]-RSV Vaccine: 60+ Years or (1 - 1-dose 75+ series) 2027 [facility]-Influenza Vaccine Completed 09/02/2024 , 08/21/2022, 08/05/2021, Additional history exists [facility]-Obesity Intervention Completed 024, 06/04/2024, 09/12/2023 HPV Vaccines Aged Out No longer eligi ble based on patient's age to complete this topic [facility]-HIB Vaccines Aged Out No longer e ligible based on patient's age to complete this topic [facility]-Hepatitis A Vaccines Aged Out No longer eligible based on patient's age to complete this topic [facility]-IPV Vaccines Aged Out No longer e ligible based on patient's age to complete this topic [facility]-Rotavirus Vaccines Aged Out No lo nger eligible based on patient's age to complete this topic Procedures Procedure Name Priority Date/Time Associated Diagnosis Comments POCT GLYCOSYLATED HEMOGLOBIN (HGB A1C) Routine 09/04/2024 10:39 AM EST Type 2 diabetes mellitus with hyperglycemia, without long-term current use of insulin ([facility]) from Last 3 Months or Most Recently Relevant to Health Maintenance Results * (ABNORMAL) POCT glycosylated hemoglobin (Hb A1C) (09/04/2024 10:39 AM EST) POCT Hemoglobin A1C 7.1 <5.7% Non-Diabe tic % [facility] Kit Lot Number [id number] [facility] Kit Expiration Date 06/14/2026 [facility] Blood Venous blood specimen / Unknown 09/04/2024 10:39 AM EST Maite HUGO POINT OF CARE TEST ENTER/EDIT ORDERABLES Final Result [facility] [address] [place] [address] from Last 3 Months or Most Recently Relevant to Health Maintenance Insurance [facility] MEDICARE Care Teams Senior Svp Relationship Specialty Start Date End Date Delores Evans APRN [address] [place] [address] PCP - General 09/12/23
--- OUTSIDE RECORDS SUMMARY | 2025-03-31 14:50 | XMS_ITS | Encounter Summary ---
Author Organization Healthcare Address [address] [place] [address] Care Team Providers Care Wardrobe Specialist Name Role Phone Arvind Kearns MD Primary Care Provider [phone] Delores Evans APRN Primary Care Provider [phone] Reason for Visit * Reason Comments Med Refill Encounter Details Date Type Department Care Team (Late st Contact Info) Description 07/22/2021 [facility] [address] [place] [address] Sherry Tucker APRN 2195 [facility] [address] [place] [address] Social History Tobacco Use Types Packs/Day Years Used Date Smoking Tobacco: Never Smokeless Tobacco: Never Alcohol Use Standard Drinks/Week Comments No 0 (1 standard drink = 0.6 oz pur e alcohol) Sex and Gender Information Value Date Recorded Sex Assigned at Not on file Legal Sex Male 6:00 PM EDT Gender Identity Not on file Sexual Orientation Not on file COVID-19 Exposure Response Date Recorded In the last month, have you been in contact with someone who was confirmed or suspected to have Coronavirus / COVID-19? No / Unsure 07/18/2021 2:47 PM EDT documented as of this encounter Miscellaneous Notes * Telephone Encounter - Sherry Tucker APRN - 07/22/2021 2:05 PM EDT Approving, but needs appt for additional refills. documented in this encounter Plan of Treatment Not on file documented as of this encounter Visit Diagnoses Not on filedocumented in this encounter Additional Health Concerns Assessment Noted Time A fall risk assessment has been complete d for the patient 07/18/2021 3:14 PM EDT documented as of this encounter Care Teams Wardrobe Specialist Relationship Specialty Start Date End Date Arvind Kearns MD [address] [facility] [place] [address] PCP - General 02/25/21 09/11/23 Delores Evans APRN [address] [place] [address] PCP - General 09/12/23 documented as of this encounter
[2025-03-31 15:19] LABS: D-Dimer 0.34 ug/mL (0.0-0.5)
[2025-03-31 15:53] LABS: Alanine Aminotransferase 21 U/L (12-78); Albumin Level 4.3 g/dl (3.5-5.0); Alkaline Phosphatase 79 U/L (38-126); Aspartate Amino Transferase 23 U/L (17-59); Bilirubin,Direct 0.3 mg/dl (0.0-0.4); Bilirubin,Indirect 0.6 mg/dL (0.0-0.9); Bilirubin,Total 0.9 mg/dl (0.2-1.3); Bilirubin,Unconjugated 0.6 mg/dL (0.0-1.1); Chol/HDL Ratio 3.1 (1-3.5); Cholesterol 157 mg/dl (140-200); HDL Cholesterol 50 mg/dl (40-60); Total Protein,Serum 6.5 g/dl (6.3-8.2); Triglycerides 100 mg/dl (30-150); VLDL Cholesterol 20 mg/dL (0-40)
[2025-03-31 16:03] LABS: Direct LDL Cholesterol 79.71 mg/dL (100-129)
== END 2025-03-31 23:59 | disposition home or self-care (01) ==
LOC: LAB 14:49
PROVIDERS: PCP Nurse Practitioner Family; Visit Provider Internal Medicine
DX: I25.118 Atherosclerotic heart disease of native coronary artery with other forms of angina pectoris (principal); Q24.5 Malformation of coronary vessels; E78.5 Hyperlipidemia, unspecified; E11.9 Type 2 diabetes mellitus without complications; R94.31 Abnormal electrocardiogram [ECG] [EKG]
CPT/HCPCS: 36415; 80061; 80076; 85378

== ENCOUNTER 2025-09-01 13:45 | Outpatient (CLI) | payer MEDICARE, SELFPAY ==
--- NOTE | 2025-09-01 13:48 | XR_ITS ---
FINAL REPORT CLINICAL HISTORY: right wrist pain FINDINGS: RIGHT WRIST Three views demonstrate no acute fracture or dislocation. The visualized joint spaces are normally aligned. Soft tissue edema is seen over the dorsum of the wrist. IMPRESSION: No acute bony abnormality. Reviewed, Interpreted and Dictated by Heron Bruce MD Transcribed by Tiffani James Authenticated and . [facility]
== END 2025-09-01 23:59 | disposition home or self-care (01) ==
LOC: RAD 13:46
PROVIDERS: PCP Nurse Practitioner Family; Visit Provider Physician Assistant
DX: M25.531 Pain in right wrist (principal); R60.0 Localized edema
CPT/HCPCS: 73110

== ENCOUNTER 2025-09-09 08:52 | Outpatient (CLI) | payer MEDICARE, SELFPAY ==
--- OUTSIDE RECORDS SUMMARY | 2025-09-09 08:55 | XMS_ITS | Clinical Summary ---
Author Organization Healthcare Address [address] [place] [address] Care Team Providers Care Reference Investigator Name Role Phone Delores Evans NANCY Primary Care Provider [phone] Allergies No known active allergies Medications Aspirin Buf,CaCarb-MgC arb-MgO, 81 MG tablet 0 Active Multiple Vitamins-[place] als (Multi For Him) capsule 0 Active omeprazole (PriLOSEC) [address] capsule 0 Active tamsulosin (Flomax) 0.4 MG 24 hr capsule 0 Active Jardiance 25 MG 3 Active levothyroxine (Synthroid, Levoxyl) 75 MCG tablet 3 Active lisinopril 5 MG tablet 3 Active bisoprolol (Zebeta) 5 MG tablet Take 1 tablet (5 mg) by mouth 1 (one) time each day. Active [place]-3 Fatty Acids (Fish Oil Burp-Less) 1200 MG capsule Take 1,200 mg by mouth 1 (one) time each day. Active doxylamine (Sleep Aid) 25 MG tablet Take 1 tablet (25 mg) by mouth at night if needed for sleep. Active rosuvastatin (Crestor) 20 MG tablet 4 Active prasugrel (Effient) 10 MG tablet 1 tablet (10 mg). 4 Active Trulicity 1.5 MG/0.5ML solution auto-injector INJECT 1.5 MG SUBCUTANEOUSLY ONCE WEEKLY 2 mL 1 5 Active Active Problems Problem Noted Date Diagnosed Date Type 2 diabetes mellitus wit h hyperglycemia, without long-term current use of insulin 11/12/2019 Hyperlipidemia Hypertension Encounters Date Type Department Care Team Description 08/07/2025 Refill [facility] Endocrinology [address] [place] [address] Maite Godinez PA 06/11/2025 Refill [facility] Endocrinology [address] [place] [address] Maite Godinez PA from Last 3 Months Family History Medical History Relation Name Comments [...] Health Maintenance Due Date Last Done Comments [facility]-Hepatitis C Screening 1950 [facility]-Medicare Annual Wellness (AWV) 1950 [facility]-Infant/Child/Adol SDOH Screenings 1952 Diabetes: Dental Exam 1962 [facility]- SDOH Screenings 1970 [facility]-Adult SDOH Screenings 1970 [facility]-Pneumococcal Vaccine: 50+ Years (1 of 2 - PCV) 1971 [facility]-DTaP,Tdap,and Td Vaccines (1 - Tdap) 12/17/1996 12/16/1996 CT Colonography 1997 Colonoscopy 1997 FIT-DNA 1997 FIT 1997 FOBT 1997 Sigmoidoscopy 1997 [facility]-Colorectal Cancer Screening 1997 [facility]-Zoster Vaccines (1 of 2) 2002 [facility]-RSV Vaccine: 60+ Years or (1 - Risk 60-74 years 1-dose series) 2012 [id number] Vaccine (2 - Demetria risk series) 09/24/2021 08/27/2021 [facility]-Depression Screening 09/12/2024 09/12/2023 [facility]-Diabetes: Hemoglobin A1C 12/04/2024, 06/04/2024, 09/12/2023, Additional history exists [facility]-Influenza Vaccine (#1) 06/15/202509/02, 08/21/2022, 08/05/2021, Additional history exists [facility]-Obesity Intervention [...] hyperglycemia, without long-term current use of insulin ([facility]) from Last 3 Months or Most Recently Relevant to Health Maintenance Results * (ABNORMAL) POCT glycosylated hemoglobin (Hb A1C) (09/04/2024 10:39 AM EST) POCT Hemoglobin A1C 7.1 <5.7% Non-Diabe tic % [facility] Kit Lot Number [id number] [facility] Kit Expiration Date 06/14/2026 [facility] Blood Venous blood specimen / Unknown 09/04/2024 10:39 AM EST Maite HUGO POINT OF CARE TEST ENTER/EDIT ORDERABLES Final Result [facility] [address] [place] [address] from Last 3 Months or Most Recently Relevant to Health Maintenance Insurance [facility] MEDICARE Care Teams Reference Investigator Relationship Specialty Start Date End Date Delores Evans APRN [address] [place] [address] PCP - General 09/12/23
--- OUTSIDE RECORDS SUMMARY | 2025-09-09 08:56 | XMS_ITS | Encounter Summary ---
Author Organization Healthcare Address [address] [place] [id number] Care Team Providers Care Rn Chemical Dependency Name Role Phone Arvind Kearns MD Primary Care Provider [phone] Delores Evans APRN Primary Care Provider [phone] Reason for Visit * Reason Comments Med Refill Encounter Details Date Type Department Care Team (Late st Contact Info) Description 04/29/2021 Refill [facility] Endocrinology [address] [place] [address] Sherry Tucker, SCRAP DROP CRANE OPERATOR [address] [address] Social History Tobacco Use Types [...] on filedocumented in this encounter Care Teams Rn Chemical Dependency Relationship Specialty Start Date End Date Arvind Kearns MD [address] [place] [address] PCP - General 02/25/21 09/11/23 Delores Evans APRN [address] [place] [address] PCP - General 09/12/23 documented as of this encounter
--- OUTSIDE RECORDS SUMMARY | 2025-09-09 08:56 | XMS_ITS | Encounter Summary ---
Author Organization Healthcare Address [address] [place] [address] Care Team Providers Care Foster Care Social Worker Name Role Phone Arvind Kearns MD Primary Care Provider [phone] Delores Evans APRN Primary Care Provider [phone] Reason for Visit * Reason Comments Med Refill Encounter Details Date Type Department Care Team (Late st Contact Info) Description [facility] [address] [place] [address] Sherry Tucker APRN 2195 [facility] [address] [place] [address] Social History Tobacco Use Types [...] documented as of this encounter Care Teams Foster Care Social Worker Relationship Specialty Start Date End Date Arvind Kearns MD [address] [place] [address] PCP - General 02/25/21 09/11/23 Delores Evans APRN [place] [address] PCP - General 09/12/23 documented as of this encounter
--- OUTSIDE RECORDS SUMMARY | 2025-09-09 08:56 | XMS_ITS | Encounter Summary ---
Author Organization Healthcare Address [address] [place] [id number] Care Team Providers Care Head Of Geography Name Role Phone Arvind Kearns MD Primary Care Provider [phone] Delores Evans APRN Primary Care Provider [phone] Reason for Visit * Reason Comments Med Refill Encounter Details Date Type Department Care Team (Late st Contact Info) Description 06/22/2021 Refill [facility] Endocrinology [address] [place] [address] Sherry Tucker, ARC WELDING MACHINE OPERATOR [address] [address] Social History Tobacco Use Types [...] on filedocumented in this encounter Care Teams Head Of Geography Relationship Specialty Start Date End Date Arvind Kearns MD [address] [place] [address] PCP - General 02/25/21 09/11/23 Delores Evans APRN [address] [place] [address] PCP - General 09/12/23 documented as of this encounter
--- OUTSIDE RECORDS SUMMARY | 2025-09-09 08:56 | XMS_ITS | Encounter Summary ---
Author Organization Healthcare Address [address] [place] [address] Care Team Providers Care Loan Officer Name Role Phone Delores Evans APRN Primary Care Provider [phone] Reason for Visit * Reason Comments Med Refill Encounter Details Date Type Department Care Team (Late st Contact Info) Description 08/07/2025 Refill [facility] Endocrinology [address] [place] [address] Maite Godinez PA [address] [facility] [address] [place] [address] Social History Tobacco Use Types [...] has been complete d for the patient 09/12/2023 10:53 AM EST A Body Mass Index follow-up plan has been documented for the patient 09/04/2024 10:56 AM EST documented as of this encounter Care Teams Loan Officer Relationship Specialty Start Date End Date Delores Evans APRN [address] [place] [address] PCP - General 09/12/23 documented as of this encounter
--- OUTSIDE RECORDS SUMMARY | 2025-09-09 08:56 | XMS_ITS | Encounter Summary ---
Author Organization Healthcare Address [address] [place] [address] Care Team Providers Care Supervisor Hydrochloric Area Name Role Phone Arvind Kearns MD Primary Care Provider [phone] Delores Evans APRN Primary Care Provider [phone] Reason for Visit * Reason Comments Med Refill Encounter Details Date Type Department Care Team (Late st Contact Info) Description 07/22/2021 [facility] [address] [place] [address] Sherry Tucker APRN 2195 [facility] [address] [place] [address] Social History Tobacco Use Types [...] documented as of this encounter Care Teams Supervisor Hydrochloric Area Relationship Specialty Start Date End Date Arvind Kearns MD [address] [facility] [place] [address] PCP - General 02/25/21 09/11/23 Delores Evans APRN [address] [place] [address] PCP - General 09/12/23 documented as of this encounter
--- NOTE | 2025-09-09 09:30 | MR_ITS ---
FINAL REPORT CLINICAL HISTORY: cyst removal from pinky side of wrist in august of 2023, reoccurring pain. area marked with a marker FINDINGS: Multiplanar and multisequence imaging of the right wrist was obtained without intravenous contrast. BONES/JOINTS: There is no acute osseous abnormality. 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 There is no bone marrow edema. There is no evidence of AVN. LIGAMENTS: There is widening of the scapholunate distance. The scapholunate ligament is torn. Remaining intrinsic ligaments appear within normal limits. TFCC: The triangular fibrocartilage complex is without acute abnormality. TENDONS/MUSCLES: There is fluid within the extensor carpi ulnaris tendon sheath. There is subluxation of the extensor carpi ulnaris tendon. There appears to be a longitudinal split tear of the extensor carpi ulnaris tendon just distal to the ulnar styloid process. Musculature is unremarkable. OTHER SOFT TISSUES: There is a small radiocarpal and intercarpal joint effusion. The median nerve has a normal appearance within the carpal tunnel. The ulnar nerve has a normal appearance. There is a small cystic lesion along the volar aspect of the wrist at the level of the triangular fibrocartilage complex. 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 This is at the location of the marker. Small cystic lesion along the volar aspect of the wrist, could be small ganglion. This is not at the location of the marker. Reviewed, Interpreted and Dictated by Amina Black MD Transcribed by Shu Farr Authenticated and [facility]
== END 2025-09-09 23:59 | disposition home or self-care (01) ==
LOC: RAD 08:52
PROVIDERS: PCP Nurse Practitioner Family; Visit Provider Physician Assistant
DX: S56.511A Strain of other extensor muscle, fascia and tendon at forearm level, right arm, initial encounter (principal); R22.31 Localized swelling, mass and lump, right upper limb
CPT/HCPCS: 73221

== ENCOUNTER 2025-09-15 11:25 | Outpatient (CLI) | payer MEDICARE, SELFPAY ==
[2025-09-15 14:57] LABS: Hematocrit 43.0 % (42.0-52.0); Hemoglobin 14.6 g/dL (14.1-18.0); Immature Granulocytes % 0.6 %; Mean Corpuscular HGB Conc 34.0 g/dL (31.8-35.4); Mean Corpuscular Hemoglobin 30.8 pg (27.0-31.2); Mean Corpuscular Volume 90.7 fl (80-94); Nucleated Red Blood Cells % 0 %; Platelet Count 164 K/mm3 (142-424); Red Blood Count 4.74 M/mm3 (4.60-6.20); Red Cell Distribution Width-SD 43.1 fL; White Blood Count 6.6 K/mm3 (4.8-10.8)
[2025-09-15 15:36] LABS: Alanine Aminotransferase 26 U/L (12-78); Albumin Level 4.2 g/dl (3.5-5.0); Albumin/Globulin Ratio 1.8 (1.1-1.8); Alkaline Phosphatase 87 U/L (38-126); Anion Gap 9.8 mEq/L (5-15); Aspartate Amino Transferase 25 U/L (17-59); Bilirubin,Total 0.7 mg/dl (0.2-1.3); Blood Urea Nitrogen 10 mg/dl (9-20); Calcium 8.9 mg/dl (8.4-10.2); Carbon Dioxide 22 mmol/L (22.0-30.0); Chloride 108 mmol/L (98-107); Cholesterol 146 mg/dl (140-200); Creatinine,Serum 0.70 mg/dl (0.66-1.25); Estimated Glomerular Filt Rate 111 ml/min (>60); GFR (African American) 134 ML/MIN (>60); Globulin 2.3 g/dL (1.3-3.2); Glucose 134 mg/dl (74-100); HDL Cholesterol 57 mg/dl (40-60); Potassium 3.8 mmoL/L (3.5-5.1); Sodium 136 mmol/L (136-145); Total Protein,Serum 6.5 g/dl (6.3-8.2); Triglycerides 105 mg/dl (30-150)
[2025-09-15 16:06] LABS: Thyroid Stimulating Hormone 2.37 uIU/mL (0.465-4.68)
[2025-09-15 16:13] LABS: Hemoglobin A1C 6.2 % (4.0-6.0)
[2025-09-15 16:25] LABS: Vitamin B12 338 pg/mL (239-931)
[2025-09-15 16:38] LABS: Folate 19.00 ng/mL
--- OUTSIDE RECORDS SUMMARY | 2025-09-16 10:16 | XMS_ITS | Encounter Summary ---
Author Organization Healthcare Address [address] [place] [id number] Care Team Providers Care Prism Inspector Name Role Phone Arvind Kearns MD Primary Care Provider [phone] Delores Evans APRN Primary Care Provider [phone] Reason for Visit * Reason Comments Med Refill Encounter Details Date Type Department Care Team (Late st Contact Info) Description 04/29/2021 Refill [facility] Endocrinology [address] [place] [address] Sherry Tucker, KILN DRAWER [address] [address] Social History Tobacco Use Types [...] on filedocumented in this encounter Care Teams Prism Inspector Relationship Specialty Start Date End Date Arvind Kearns MD [address] [place] [address] PCP - General 02/25/21 09/11/23 Delores Evans APRN [address] [place] [address] PCP - General 09/12/23 documented as of this encounter
--- OUTSIDE RECORDS SUMMARY | 2025-09-16 10:16 | XMS_ITS | Encounter Summary ---
Author Organization Healthcare Address [address] [place] [id number] Care Team Providers Care Home Improvement Installer Name Role Phone Arvind Kearns MD Primary Care Provider [phone] Delores Evans APRN Primary Care Provider [phone] Reason for Visit * Reason Comments Med Refill Encounter Details Date Type Department Care Team (Late st Contact Info) Description 06/22/2021 Refill [facility] Endocrinology [address] [place] [address] Sherry Tucker, HEAVY MOBILE EQUIPMENT OPERATOR [address] [address] Social History Tobacco Use Types [...] on filedocumented in this encounter Care Teams Home Improvement Installer Relationship Specialty Start Date End Date Arvind Kearns MD [address] [place] [address] PCP - General 02/25/21 09/11/23 Delores Evans APRN [address] [place] [address] PCP - General 09/12/23 documented as of this encounter
--- OUTSIDE RECORDS SUMMARY | 2025-09-16 10:16 | XMS_ITS | Encounter Summary ---
Author Organization Healthcare Address [address] [place] [address] Care Team Providers Care Ship Rigger Apprentice Name Role Phone Arvind Kearns MD Primary Care Provider [phone] Delores Evans APRN Primary Care Provider [phone] Reason for Visit * Reason Comments Med Refill Encounter Details Date Type Department Care Team (Late st Contact Info) Description [facility] [address] [place] [address] Sherry Tucker APRN 2195 [facility] [address] [place] [address] Social History Tobacco Use Types [...] documented as of this encounter Care Teams Ship Rigger Apprentice Relationship Specialty Start Date End Date Arvind Kearns MD [address] [place] [address] PCP - General 02/25/21 09/11/23 Delores Evans APRN [place] [address] PCP - General 09/12/23 documented as of this encounter
--- OUTSIDE RECORDS SUMMARY | 2025-09-16 10:16 | XMS_ITS | Clinical Summary ---
Author Organization Healthcare Address [address] [place] [address] Care Team Providers Care Enterprise Analyst Name Role Phone Delores Evans NANCY Primary Care Provider [phone]- [phone] Allergies No known active allergies Medications Aspirin Buf,CaCarb-MgC arb-MgO, 81 MG tablet 0 Active Multiple Vitamins-Mangle Catcher als (Multi For Him) capsule 0 Active omeprazole (PriLOSEC) [address] capsule 0 Active tamsulosin (Flomax) 0.4 MG 24 hr capsule 0 Active Jardiance 25 MG 3 Active levothyroxine (Synthroid, Levoxyl) 75 MCG tablet 3 Active lisinopril 5 MG tablet 3 Active bisoprolol (Zebeta) 5 MG tablet Take 1 tablet (5 mg) by mouth 1 (one) time each day. Active Apollo-3 Fatty Acids (Fish Oil Burp-Less) 1200 MG [...] Type Department Care Team Description 08/07/2025 [facility] [address] [place] [address] Maite Godinez PA from Last [...] Health Maintenance Due Date Last Done Comments [facility]-Hepatitis C Screening 1950 [place] Annual Wellness (AWV) [...] - Risk 60-74 years 1-dose series) 2012 [id number] Vaccine (2 - Demetria risk series) 09/24/2021 [...] hyperglycemia, without long-term current use of insulin ([facility]) from Last 3 Months or Most Recently Relevant to Health Maintenance Results * (ABNORMAL) POCT glycosylated hemoglobin (Hb A1C) (09/04/2024 10:39 AM EST) POCT Hemoglobin A1C 7.1 <5.7% Non-Diabe tic % [facility] Kit Lot Number [id number] [facility] Kit Expiration Date 06/14/2026 [facility] Blood Venous blood specimen / Unknown 09/04/2024 10:39 AM EST us Maite HUGO POINT OF CARE TEST ENTER/EDIT ORDERABLES Final Result [facility] [address] [place] [address] from Last 3 Months or Most Recently Relevant to Health Maintenance Insurance [facility] MEDICARE Care Teams Enterprise Analyst Relationship Specialty Start Date End Date Delores Evans APRN [address] [place] [address] PCP - General 09/12/23
--- OUTSIDE RECORDS SUMMARY | 2025-09-16 10:16 | XMS_ITS | Encounter Summary ---
Author Organization Healthcare Address [address] [place] [address] Care Team Providers Care Assistant Corporation Counsel Name Role Phone Arvind Kearns MD Primary Care Provider [phone] Delores Evans APRN Primary Care Provider [phone] Reason for Visit * Reason Comments Med Refill Encounter Details Date Type Department Care Team (Late st Contact Info) Description 07/22/2021 [facility]ill [facility] [address] [place] [address] Sherry Tucker APRN [address] [place] [address] Social History Tobacco Use Types [...] documented as of this encounter Care Teams Assistant Corporation Counsel Relationship Specialty Start Date End Date Arvind Kearns MD [address] [facility] [place] [address] PCP - General 02/25/21 09/11/23 Delores Evans APRN [address] [place] [address] PCP - General 09/12/23 documented as of this encounter
--- OUTSIDE RECORDS SUMMARY | 2025-09-16 10:16 | XMS_ITS | Encounter Summary ---
Author Organization Healthcare Address [address] [place] [address] Care Team Providers Care Contract Technical Writer Name Role Phone Delores Evans APRN Primary Care Provider [phone] Reason for Visit * Reason Comments Med Refill Encounter Details Date Type Department Care Team (Late st Contact Info) Description 08/07/2025 Refill [facility] [address] [place] [address] Maite Godinez PA [address] [facility] [address] [place] [address] Social History Tobacco Use Types [...] documented as of this encounter Care Teams Contract Technical Writer Relationship Specialty Start Date End Date Delores Evans APRN [address] [place] [address] PCP - General 09/12/23 documented as of this encounter
== END 2025-09-15 23:59 ==
LOC: LAB.DROPOF 09-16 10:14
PROVIDERS: PCP Nurse Practitioner Family; Visit Provider Internal Medicine
DX: E78.2 Mixed hyperlipidemia (principal); I10 Essential (primary) hypertension; I25.118 Atherosclerotic heart disease of native coronary artery with other forms of angina pectoris; E11.59 Type 2 diabetes mellitus with other circulatory complications; E03.9 Hypothyroidism, unspecified; R41.3 Other amnesia
CPT/HCPCS: 80053; 80061; 82607; 82746; 83036; 84443; 85025; 85651

== ENCOUNTER 2025-09-25 14:08 | Outpatient (CLI) | payer MEDICARE, SELFPAY ==
--- NOTE | 2025-09-25 15:00 | CT_ITS ---
FINAL REPORT TECHNIQUE: Axial CT images were performed through the head. Coronal reformatted images were submitted. This study was performed with techniques to keep radiation doses as low as reasonably achievable (ALARA). Individualized dose reduction techniques using automated exposure control or adjustment of mA and/or kV according to the patient's size were employed. CLINICAL HISTORY: Memory loss, forgetfulness FINDINGS: The ventricles are normal in size. There is no evidence of hemorrhage. There is no mass or edema identified. There is no abnormal extra-axial fluid seen. The sinuses are well aerated. IMPRESSION: No acute intracranial process. Reviewed, Interpreted and Dictated by Heron Bruce MD Transcribed by Shu Farr Authenticated and . [facility]
== END 2025-09-25 23:59 | disposition home or self-care (01) ==
LOC: RAD 14:09
PROVIDERS: PCP Nurse Practitioner Family; Visit Provider Internal Medicine
DX: R41.3 Other amnesia (principal); R68.89 Other general symptoms and signs
CPT/HCPCS: 70450